=== PATIENT | male | born 1985 | race Caucasian/White ===

== ENCOUNTER 2016-08-17 15:18 | Inpatient (IN) | payer OTHER ==
[~2016-08-17] VITALS: Ht 165.1 cm; Wt 71.1 kg
[~2016-08-17 15:18] MED LIST: LAMI25TA PO; LEVO25TA5 PO; LEVO75TA4 PO; LEVOTHYROXINE PO; PALI1TAB2 PO; TRAZO50TA PO
[2016-08-17 17:21] LABS: MEAN CORPUSCULAR HEMOGLOBIN 31.5 pg (27.0-33.0); MEAN CORPUSCULAR HGB CONC 34.6 g/dl (32.0-36.5); RED CELL DISTRIBUTION WIDTH 11.8 % (11.5-14.5)
[2016-08-17 17:32] LABS: AMPHETAMINES LEVEL URINE NEGATIVE (NEGATIVE); BENZODIAZEPINES URINE NEGATIVE (NEGATIVE); COCAINE METABOLITE URINE NEGATIVE (NEGATIVE); CONTROL LINE INT CTR LINE PRESENT; METHADONE URINE NEGATIVE (NEGATIVE); OPIATES URINE NEGATIVE (NEGATIVE); TRICYCLIC ANTIDEPRESS URINE NEGATIVE (NEGATIVE)
[2016-08-17 17:44] LABS: ALBUMIN 4.9 GM/DL (3.2-5.2); ALBUMIN/GLOBULIN RATIO 1.81 (1.00-1.93); ALKALINE PHOSPHATASE 108 U/L (45-117); ALT/SGPT 25 U/L (12-78); ANION GAP 9 MEQ/L (8-16); AST/SGOT 13 U/L (15-37); BILIRUBIN,DIRECT 0.1 MG/DL (0.0-0.2); BILIRUBIN,TOTAL 0.5 MG/DL (0.2-1.0); BLOOD UREA NITROGEN 8 MG/DL (7-18); CALCIUM LEVEL 9.2 MG/DL (8.5-10.1); CARBON DIOXIDE LEVEL 28 MEQ/L (21-32); CHLORIDE LEVEL 103 MEQ/L (98-107); GLOMERULAR FILTRATION RATE > 60.0 (>60); GLUCOSE, FASTING 95 MG/DL (70-105); POTASSIUM SERUM 4.1 MEQ/L (3.5-5.1); SODIUM LEVEL 140 MEQ/L (136-145); TOTAL PROTEIN 7.6 GM/DL (6.4-8.2)
[2016-08-17] MEDS ORDERED: FLOM5CAP PO (23:12)
[2016-08-17] MEDS ORDERED: INVE6TAB2 PO (23:12)
[2016-08-17] MEDS ORDERED: LEVO100T5 PO (23:12)
[2016-08-17] MEDS ORDERED: TRAZ100T4 PO (23:12)
[2016-08-17] MEDS ORDERED: NICO14DI20 TD (23:12)
[2016-08-17] MEDS ORDERED: ZOLO100T PO (23:12)
[2016-08-17] MEDS ORDERED: AMBI10TA PO (23:12)
[2016-08-17] MEDS ORDERED: ATIV1TAB7 PO (23:12)
[2016-08-18] MEDS ORDERED: ACETAMINOPHEN TAB 650MG DOSE (2X325MG) PO PRN (00:45)
[2016-08-18] MEDS ORDERED: MAALOX 30 ML SUSP *UDC PO PRN (00:45)
[2016-08-18] MEDS ORDERED: MOM 30ML SUSPENSION UDC PO PRN (00:45)
--- NOTE | 2016-08-18 02:22 | EDDOCDS ---
Nurse's Notes [facility] Name: Marlon Schilling Age: 31 yrs Sex: Male : 1985 Arrival Date: 08/17/2016 Time: 15:18 Bed 19 Private MD: Brii NO Diagnosis: Suicidal ideations Presentation: 08/17 15:39 Presenting complaint:. Presenting complaint: patient told his licensed master social worker that he is kcs SI every day - recently discharged for [facility] facility. Also having short term memory loss. Mental Health Triage Level: Level 2:. Adult Sepsis Screening: The patient does not have new or worsening altered mentation. Patient's respiratory rate is less than 22. Systolic blood pressure is greater than 100. Patient has a qSOFA score of 0- Negative Sepsis Screen. Mental Health Triage Level: Level 2: The patient displays active suicidal ideations. The patient displays active homicidal ideations. Suicide/Homicide risk assessment- the patient denies having any suicidal and/or homicidal ideations and does not present with any other emotional, behavioral or mental health complaints. Status: The patient is an active duty protective service specialist. Transition of care: patient was not received from another setting of care. 15:39 Acuity: LOURDES Level 3 kcs 15:39 Method Of Arrival: Walkin/Carried/Asstd kcs 15:48 Presenting complaint: patient stated he was fine and did not need to be here. Escorts kcs say he was sent for psych eval. Triage Assessment: 15:43 General: Appears distressed, well developed, well nourished, well groomed, Behavior is kcs flat, uncooperative. Pain: Denies pain. HIV screening NA for this visit active duty . Neurological: Level of Consciousness is awake, alert. Respiratory: Airway is patent Respiratory effort is even, unlabored, Respiratory pattern is regular, symmetrical. Derm: Skin is intact, is healthy with good turgor, Skin is dry, Skin is normal. 15:49 General: patient answers no to all questions and just stares through you.. kcs 16:01 General: here with escorts. kcs Historical: - Allergies: Seroquel (Rash); - Home Meds: 1. Invega 3 mg Oral tr24 1 tab Daily( patient took self off this three weeks ago) 2. Lamictal Oral 50 mg twice daily ( patient took self off this three weeks ago) 3. levothyroxine 75 mcg Oral tab 1 tab once daily (Last dose: 08/17/2016 06:00) - PMHx: Bipolar disorder; Hypothyroidism; - PSHx: none; - Social history: Smoking status: unknown if patient ever smoked tobacco. No barriers to communication noted, The patient speaks fluent Dutch. - Family history: Not pertinent. - : The pt / caregiver states he / she is not on anticoagulants. Home medication list is obtained from [employer] import data. - Exposure Risk Screening:: None identified. Screenin:56 Screening information is obtained from the patient. Fall risk: No risks identified. ml6 Assistance ADL's: requires no assistance with activities of daily living. Abuse/DV Screen: The patient / caregiver reports he/she is: not in a situation that causes fear, pain or injury. Nutritional screening: No deficits noted. Advance Directives: Currently, there is no health care proxy. home support is adequate. Assessment: 16:12 General: since initial Triage patient has been sitting at the second triage desk kcs accompanied by his 2 escorts. 16:59 General: Appears in no apparent distress, Behavior is appropriate for age, cooperative. srm Neurological: Level of Consciousness is awake, alert, Oriented to person, place, time, Moves all extremities. Full function Gait is steady, Speech is normal, Facial symmetry appears normal. Respiratory: No deficits noted. GI: No deficits noted. 18:02 General: Appears in no apparent distress, comfortable, Behavior is appropriate for age, ml6 cooperative. Pain: Denies pain. Neurological: No deficits noted. Level of Consciousness is awake, alert, Oriented to person, place, time, Cardiology Nurse are Moves all extremities. Cardiovascular: No deficits noted. Capillary refill < 3 seconds is brisk in bilateral fingers toes Heart tones S1 S2 present. Respiratory: No deficits noted. Airway is patent Respiratory effort is even, unlabored. 19:24 General: Appears in no apparent distress, comfortable, Behavior is appropriate for age, af2 cooperative, flat, Assumed care of pt at this time, pt seated in upright position. Offers no complaints. escort at bedside. MOHAN staff observing pt at this time. Will continue to monitor. . Neurological: Level of Consciousness is awake, alert, Oriented to person, place, time. Respiratory: Airway is patent Respiratory effort is even, unlabored. 20:22 General: Appears in no apparent distress, comfortable, Behavior is appropriate for age, af2 cooperative, this investigative writer verified home medications with pt including scheduled times and last dosage time- pt confirms he only takes Synthroid at 0600, last dose this morning and states that he stopped taking his other medications on his own [address] Snell notified of this information. escort remains at bedside. MOHAN staff observing, will continue to monitor. . Neurological: Level of Consciousness is awake, alert. Respiratory: Airway is patent Respiratory effort is even, unlabored. Derm: Skin is normal. 20:51 General: Appears in no apparent distress, Behavior is cooperative, pt lying on af2 stretcher quietly in room 19. report given to Bruno Snider RN at this time. He has agreed to assume care of pt.. 21:08 General: Appears in no apparent distress, comfortable, Behavior is appropriate for age, jmb cooperative, flat, Patient laying on stretcher, appears comfortable. Patient commanding officer at bedside. NO voiced complaints at this time. . Pain: Denies pain. Neurological: Level of Consciousness is awake, alert, obeys commands, Oriented to person, place, time, Cardiology Nurse are equal bilaterally Moves all extremities. Full function Gait is steady, Speech is normal, Facial symmetry appears normal, Facial symmetry: tongue is midline. Cardiovascular: Capillary refill < 3 seconds Heart tones S1 S2 present Pulses are all present. Rhythm is regular. Respiratory: Airway is patent Respiratory effort is even, unlabored, Respiratory pattern is regular, symmetrical, Breath sounds are clear bilaterally. GI: Abdomen is non- distended Bowel sounds present X 4 quads. Abd is soft and non tender X 4 quads. Derm: Skin is pink, warm & dry. Musculoskeletal: Range of motion intact in all extremities. 21:41 General: Appears in no apparent distress, comfortable, Behavior is appropriate for age, jmb cooperative, Patient laying on stretcher with commanding officer at bedside. Patient denies discomfort at this time. . Neurological: Level of Consciousness is awake, alert, obeys commands. Respiratory: Airway is patent Respiratory effort is even, unlabored, Respiratory pattern is regular, symmetrical. 22:20 General: Appears in no apparent distress, comfortable, Behavior is appropriate for age, jmb cooperative, Patient laying on stretcher, appears comfortable. Commanding officer at bedside. NO voiced complaints at this time. . Neurological: Level of Consciousness is awake, alert, obeys commands, Oriented to person, place, time. Respiratory: Airway is patent Respiratory effort is even, unlabored, Respiratory pattern is regular, symmetrical. 22:50 General: Appears in no apparent distress, comfortable, Behavior is appropriate for age, jmb cooperative, Patient laying on stretcher, appears comfortable. Patient denies discomfort at this time. . Neurological: Level of Consciousness is awake, alert, obeys commands, Oriented to person, place, time. Respiratory: Airway is patent Respiratory effort is even, unlabored, Respiratory pattern is regular, symmetrical. 23:30 General: Appears in no apparent distress, comfortable, Behavior is appropriate for age, jmb cooperative. Neurological: Level of Consciousness is awake, alert, obeys commands, Oriented to person, place, time. Respiratory: Airway is patent Respiratory effort is even, unlabored, Respiratory pattern is regular, symmetrical. 08/18 00:04 General: Appears in no apparent distress, comfortable, Behavior is appropriate for age, jmb cooperative, Patient up to bathroom. NO voiced complaints at this time. . Neurological: Level of Consciousness is awake, alert, obeys commands, Oriented to person, place, time. Respiratory: Airway is patent Respiratory effort is even, unlabored, Respiratory pattern is regular, symmetrical. 01:38 General: Appears in no apparent distress, comfortable, Behavior is appropriate for age, jmb cooperative, Patient appears to be asleep, easy to arouse. Voices no complaints at this time. . Neurological: Level of Consciousness is awake, alert, obeys commands, Oriented to person, place, time. Respiratory: Airway is patent Respiratory effort is even, unlabored, Respiratory pattern is regular, symmetrical. 02:03 General: Appears in no apparent distress, comfortable, Behavior is appropriate for age, jmb cooperative. Pain: Denies pain. Neurological: Level of Consciousness is awake, alert, obeys commands, Oriented to person, place, time, Cardiology Nurse are equal bilaterally Speech is normal, Facial symmetry appears normal, Facial symmetry: tongue is midline. Cardiovascular: Capillary refill < 3 seconds Heart tones S1 S2 present Pulses are all present. Rhythm is regular. Respiratory: Airway is patent Respiratory effort is even, unlabored, Respiratory pattern is regular, symmetrical, Breath sounds are clear bilaterally. GI: Abdomen is non- distended Bowel sounds present X 4 quads. Abd is soft and non tender X 4 quads. Derm: Skin is pink, warm & dry. Musculoskeletal: Range of motion intact in all extremities. 02:21 General: Patient leaving ER to [facility]. ramesh Mental Health Eval: 08/17 21:03 Mental health consult is initiated at 20:00. Status: The patient is an active ac duty protective service specialist. [facility] Behavioral Health: The patient is not an established patient of [facility] Behavioral Health. Referral Information: Evaluation referral is generated by the patient's therapist Bryant Loaiza at [facility]. The patient was referred for evaluation because of apparent exacerbation of Bipolar D/O, including SI. Subjective: The patients chief complaint is [No answer], when asked the reason for his visit here today. Delusions are not elicited presently, nor are hallucinations. Patient's mood is depressed. Patient is a poor historian, who is very difficult to engage. Most of the hx is obtained from his EMR, clinic note from [facility] & his Doll Wig Hackler (Fernando). When attempting to engage patient, he generally stares straight ahead, appearing unable to think clearly or comprehend most questions. He initially denied seeing today, then later said that he had (after being corrected by his SL). He said that he has been depressed, although only admitted to this when prompted by this investigative writer repeating clinic notes. Patient was able to accurately recite the date & location, although little else. Per review of his EMR, he was admitted here in January for 3 weeks & D/C with a dx of Bipolar D/O. Per review of his clinic note from today, he was transferred to [facility] in May, where he had an extended stay after attempting suicide by cutting his wrist with a broken CD (while on their unit). In June he was sent to [facility], where he received 8 sessions of ECT. He returned on 07/29, appearing to be improved. He has since stopped his meds & his condition has decompensated. His Doll Wig Hackler reported that he has regular contact with the patient, "And today was by far the worst". SL reported that he began attempting to get patient out of bed to report to work at 10:45 am, although patient was not responding to requests & kept falling asleep. This continued until after 2:00 pm, when he was eventually taken to , where he revealed feeling suicidal for the last several days. At this point he appears unsafe & unreliable. 21:49 Narrative: This assessment & documentation was completed by Luigi Srinivasan & charted ac under Martin James. 21:56 Mental Health history: Bipolar Disorder, depression, paranoia, psychosis, sleep jl disturbance, suicide attempt by cutting Mental Health Admissions: [facility]: 01/2016, [facility]: 05/2016 & [facility]: 06/2016 Current Outpatient Mental Health Services: Psychiatrist / Agency: [facility]. Therapist / Agency: [facility]. Current living environment is The patient [facility]. Patient presents to Emergency Department with the following symptoms within the past 2 weeks: depressed mood, non-compliance, poor concentration, psychosis, sleep disturbance - excessive sleeping, suicidal ideation with no plan. Substance abuse: None known. Mental status exam: Patients appearance is appropriate, Patient's behavior is bizarre, inhibited, minimally responsive Speech is unspontaneous Affect is flat. Mood is depressed. Hallucinations are not evident. Appetite is unable to obtain Memory is poor. Patient's insight is poor. Judgement is poor. Remainder of MSE is deferred due to patient's condition. Disposition: Medically cleared for disposition by Lorenza Santos MD Psychiatric Consult is performed by phone with Dr Yara Wick. [facility] Admission Criteria: The patient is experiencing suicidal ideation. The patient displays symptoms of severe psychiatric disorder resulting in disordered behavior and significant interference with his / her ability to maintain self care. The patient requires continuous observation and/or control to protect self, others or property. The patient's care requires a multi-modal treatment plan under close supervision and coordination due to the complexity and severity of the patient's symptoms. Legal Status: Patient's legal status will be Emergency admission: 39. [place] because patient was registered less than 6 months ago. DSM-V Differential Diagnosis: Bipolar D/O, Unspecified. 22:04 Insurance Pre-Certification: Not Required. jl Psych: 17:00 Mental Health Triage Level: Level 2: The patient displays active suicidal ideations. srm 17:00 Objective: Patient is cooperative, Speech is normal. Affect is appropriate. Vital Signs: 15:21 BP 121 / 91; Pulse 79; Resp 16; Temp 97.8; Pulse Ox 98% ; Weight 72.57 kg; Height 5 ft. cmb 5 in. (165.10 cm); Pain 0/10; 21:08 BP 128 / 85; Pulse 60; Resp 18; Temp 98.5(TE); Pulse Ox 97% on R/A; Pain 0/10; jmb 08/18 02:06 BP 126 / 94; Pulse 60; Resp 18 S; Temp 97.3(O); Pulse Ox 98% on R/A; Pain 0/10; jp4 08/17 15:21 Body Mass Index 26.63 (72.57 kg, 165.10 cm) cmb Vitals: 08/17 15:21 Log In Time: August 17, 2016 at 15:18. b ED Course: 15:20 Patient visited by Tiff Lopez. cmb 15:20 [facility], [place] is Private Physician. cmb 15:20 Patient moved to Waiting cmb 15:21 RN notified that patient meets Red Flag criteria. cmb 15:35 Patient moved to Pre RCE gr2 15:43 Triage Initiated kcs 16:09 Patient moved to Psy Chair2 mb9 16:50 Patient moved to H2 srm 17:00 Patient visited by Ambar Perry RN. [facility] 17:00 Lorenza Santos MD is Attending Physician. ml 17:00 Patient visited by Lorenza Santos MD. ml 18:21 Patient visited by Yonatan Guevara, BOBBI. ml6 18:55 Patient visited by Yonatan Guevara RN. ml6 18:56 The patient / caregiver is instructed regarding the plan of care and ED course. ml6 18:56 No IV's were initiated during this patient's visit. No procedures done that require [facility] assistance. 18:58 Diet: Patient given regular meal. Tolerated well. rs6 18:58 Cardiac monitoring not applicable on this patient. Psych Safety Check: Location: [facility]. Visual Assessment: Cooperative. 19:08 Patient visited by Patricia Sheets PCA. rs6 19:26 Patient visited by Smitha Sullivan,RN. af2 19:31 Patient visited by Patricia Sheets PCA. rs6 19:31 Diet: Patient given water. Tolerated well. rs6 19:47 Patient visited by Patricia Sheets PCA. rs6 19:47 EKG done. (by ED staff). Reviewed by Lorenza Santos MD. rs6 20:21 Patient visited by Smitha Sullivan RN. af2 20:26 Patient visited by Smitha Sullivan RN. af2 20:34 Patient moved to Aug 20:42 Patient visited by Patricia Sheets PCA. rs6 20:52 Patient visited by Smitha Sullivan RN. af2 21:10 Patient visited by Guy Snider RN. jmb 21:42 Patient visited by Guy Snider RN. jmb 22:05 Other: [place] [facility] Note was scanned into [employer] and attached to record. jl 22:20 Patient visited by Guy Snider RN. jmb 22:27 E Legal paperwork was scanned into [employer] and attached to record. jl 22:31 Yara Wick is Hospitalizing Provider. ml 22:50 Patient visited by Guy Snider RN. jmb 08/18 00:04 Patient visited by Guy Snider RN. jmb 00:19 [facility] Payment Agreement was scanned into [employer] and attached to record. ks16 00:48 role handed off by Martin James PSA kb5 00:49 role handed off by Luigi Srinivaasn PSA kb5 01:17 Jessica Valverde,RN is Primary Nurse. cf2 01:17 Patient visited by Jessica Valverde,BOBBI. cf2 01:39 Patient visited by Guy Snider RN. jmb 02:05 Patient visited by Guy Snider RN. jmb 02:07 Patient visited by Jesse Call. jp4 Attachments: 22:27 E Legal paperwork jl Order Results: Lab Order: Acetaminophen Level; SPEC'M 08/17/16 17:07 Test: ACETAMINOPHEN LEVEL; Value: < 2.0; Range: 10.0-30.0; Abnormal: Below low normal; Units: UG/ML; Status: F Lab Order: Basic Metabolic Profile; SPEC'M 08/17/16 17:07 Test: GLUCOSE, FASTING; Value: 95; Range: 70-105; Units: MG/DL; Status: F Test: BLOOD UREA NITROGEN; Value: 8; Range: 7-18; Units: MG/DL; Status: F Test: CREATININE FOR GFR; Value: 1.00; Range: 0.70-1.30; Units: MG/DL; Status: F Test: GLOMERULAR FILTRATION RATE; Value: > 60.0; Range: >60; Status: F Test: SODIUM LEVEL; Value: 140; Range: 136-145; Units: MEQ/L; Status: F Test: POTASSIUM SERUM; Value: 4.1; Range: 3.5-5.1; Units: MEQ/L; Status: F Test: CHLORIDE LEVEL; Value: 103; Range: 98-107; Units: MEQ/L; Status: F Test: CARBON DIOXIDE LEVEL; Value: 28; Range: 21-32; Units: MEQ/L; Status: F Test: ANION GAP; Value: 9; Range: 8-16; Units: MEQ/L; Status: F Test: CALCIUM LEVEL; Value: 9.2; Range: 8.5-10.1; Units: MG/DL; Status: F Test Note: ; Units are mL/min/1.73 m2 Chronic Kidney Disease Staging per NKF: Stage I & II GFR >=60 Normal to Mildly Decreased Stage III GFR 30-59 Moderately Decreased Stage IV GFR 15-29 Severely Decreased Stage V GFR <15 Very Little GFR Left ESRD GFR <15 on WAREHOUSE DISTRIBUTION MANAGER Lab Order: Complete Blood Count; [facility] 08/17/16 17:07 Test: WHITE BLOOD COUNT; Value: 6.0; Range: 4.0-10.0; Units: K/mm3; Status: F Test: RED BLOOD COUNT; Value: 4.70; Range: 4.30-6.10; Units: M/mm3; Status: F Test: HEMOGLOBIN; Value: 14.8; Range: 14.0-18.0; Units: g/dl; Status: F Test: HEMATOCRIT; Value: 42.8; Range: 42.0-52.0; Units: %; Status: F Test: MEAN CORPUSCULAR VOLUME; Value: 91.0; Range: 80.0-96.0; Units: fl; Status: F Test: MEAN CORPUSCULAR HEMOGLOBIN; Value: 31.5; Range: 27.0-33.0; Units: pg; Status: F Test: MEAN CORPUSCULAR HGB CONC; Value: 34.6; Range: 32.0-36.5; Units: g/dl; Status: F Test: RED CELL DISTRIBUTION WIDTH; Value: 11.8; Range: 11.5-14.5; Units: %; Status: F Test: PLATELET COUNT, AUTOMATED; Value: 309; Range: 150-450; Units: k/mm3; Status: F Lab Order: Drug Eval Toxicology ED Only; SPEC'M 08/17/16 17:07 Test: AMPHETAMINES LEVEL URINE; Value: NEGATIVE; Range: NEGATIVE; Status: F Test: BARBITURATES URINE; Value: NEGATIVE; Range: NEGATIVE; Status: F Test: BENZODIAZEPINES URINE; Value: NEGATIVE; Range: NEGATIVE; Status: F Test: CANNABINOIDS URINE; Value: NEGATIVE; Range: NEGATIVE; Status: F Test: COCAINE METABOLITE URINE; Value: NEGATIVE; Range: NEGATIVE; Status: F Test: METHADONE URINE; Value: NEGATIVE; Range: NEGATIVE; Status: F Test: OPIATES URINE; Value: NEGATIVE; Range: NEGATIVE; Status: F Test: TRICYCLIC ANTIDEPRESS URINE; Value: NEGATIVE; Range: NEGATIVE; Status: F Test Note: ; ALL PRESUMPTIVE POSITIVE FINDINGS ARE UNCONFIRMED NORMAL VALUES THRESHOLD IN NG/ML AMPHETAMINES 1000 METHAMPHETAMINES 1000 BARBITURATES 300 BENZODIAZEPINES 300 CANNABINOIDS (THC) 50 COCAINE METABOLITE 300 METHADONE 300 OPIATES 300 PHENCYCLIDINE 25 TRICYCLIC ANTIDEPRESSANTS 1000 RESULTS ARE FOR MEDICAL PURPOSES ONLY. ALL URINE SPECIMENS WILL BE SAVED FOR 3 DAYS. IF CONFIRMATION OF A PRESUMPTIVE POSTIVE SCREEN RESULT IS DESIRED, CALL CHEMISTRY ([phone]) AND REQUEST URINE TO BE SENT TO REFERENCE LAB. FOR A LIST OF CLOSELY RELATED COMPOUNDS PLEASE CALL THE LAB. Lab Order: Ethyl Alcohol (ethanol); SPEC'M 08/17/16 17:07 Test: ETHYL ALCOHOL (ETHANOL); Value: < 0.003; Range: 0.000-0.010; Units: %; Status: F Lab Order: Liver Profile; SPEC'M 08/17/16 17:07 Test: AST/SGOT; Value: 13; Range: 15-37; Abnormal: Below low normal; Units: U/L; Status: F Test: ALT/SGPT; Value: 25; Range: 12-78; Units: U/L; Status: F Test: ALKALINE PHOSPHATASE; Value: 108; Range: 45-117; Units: U/L; Status: F Test: BILIRUBIN,TOTAL; Value: 0.5; Range: 0.2-1.0; Units: MG/DL; Status: F Test: BILIRUBIN,DIRECT; Value: 0.1; Range: 0.0-0.2; Units: MG/DL; Status: F Test: TOTAL PROTEIN; Value: 7.6; Range: 6.4-8.2; Units: GM/DL; Status: F Test: ALBUMIN; Value: 4.9; Range: 3.2-5.2; Units: GM/DL; Status: F Test: ALBUMIN/GLOBULIN RATIO; Value: 1.81; Range: 1.00-1.93; Status: F Lab Order: Salicylate Level; SPEC'M 08/17/16 17:07 Test: SALICYLATE LEVEL; Value: < 1.7; Range: 5.0-30.0; Abnormal: Below low normal; Units: MG/DL; Status: F Lab Order: Thyroid Stimulating Hormone; SPEC'M 08/17/16 17:07 Test: THYROID STIMULATING HORMONE; Value: 3.030; Range: 0.358-3.740; Units: uIU/ML; Status: F Outcome: 08/17 22:32 Decision to Hospitalize by Provider. 08/18 02:03 Discharge Assessment: Patient awake, alert and oriented x 3. No cognitive and/or jmb functional deficits noted. Patient verbalized understanding of disposition instructions. Patient awake and alert. obeys commands, Oriented to person, place and time. Patient verbalized understanding of disposition instructions. Patient has no functional deficits. patient administered narcotics - no. The following High Risk Discharge criteria are identified: None. Admitted to Psych accompanied by tech, via wheelchair, with chart. Condition: stable. No special radiology studies were completed. Property :Personal belongings accompany Pt. 02:21 Patient left the ED. jmb Signatures: Lorenza Santos MD MD ml Sleeman, Kacey, RN RN kcs Michelson, Staci, RN RN srm Newman, Jill New, RN RN jan Carter, Andy, PSA PSA Luigi Miles PSA PSA kristie Perezoft Humberto, DATA CONSULTANT DATA CONSULTANT kb5 Yonatan Guevara, RN RN ml6 Tiff Lopez cmb Joanna Velez gr2 Guy SniderRN RN jmb Jesse Call jp4 Jersey Kamara,RN RN mb9 Sheets, Patricia, DATA CONSULTANT DATA CONSULTANT rs6 Smitha Sullivan,RN RN af2 Batsheva Reyes, Reg Reg ks16 Jessica Valverde RN RN cf2 Corrections: (The following items were deleted from the chart) 08/17 15:45 15:39 Presenting complaint: patient told his licensed master social worker that is SI every day - kcs recently discharged for [facility] facility. Also having short term memory loss. kcs 15:48 15:39 Presenting complaint: patient told his licensed master social worker that is SI every day - kcs recently discharged for [facility] facility. Also having short term memory loss. kcs 20:10 15:43 Home Meds: levothyroxine 75 mcg Oral tab 1 tab once daily; kcs af2 22:04 21:03 Subjective: The patients chief complaint is [No answer], when asked the reason jl for his visit here today. Delusions are not elicited presently, nor are hallucinations. Patient's mood is depressed. Patient is a poor historian, who is very difficult to engage. Most of the hx is obtained from his EMR, clinic note from [facility] & his Doll Wig Hackler (Fernando). When attempting to engage patient, he generally stares straight ahead, appearing unable to think clearly or comprehend most questions. He initially denied seeing today, then later said that he had (after being corrected by his SL). He said that he has been depressed, although only admitted to this when prompted by this investigative writer repeating clinic notes. Patient was able to accurately recite the date & location, although little else. Per review of his EMR, he was admitted here in January for 3 weeks & D/C with a dx of Bipolar Type I. Per review of his clinic note from today, he was transferred to [facility] in May, where he had an extended stay after attempting suicide by cutting his wrist with a broken CD (while on their unit). In June he was sent to [facility], where he received 8 sessions of ECT. He returned on 07/29, appearing to be improved. He has since stopped his meds & his condition has decompensated. His Doll Wig Hackler reported that he has regular contact with the patient, "And today was by far the worst". SL reported that he began attempting to get patient out of bed to report to work at 10:45 am, although patient was not responding to requests & kept falling asleep. This continued until after 2:00 pm, when he was eventually taken to , where he revealed feeling suicidal for the last several days. At this point he appears unsafe & unreliable ac MTDD
--- NOTE | 2016-08-18 02:22 | EDDOCDS ---
Physician Documentation [facility] Name: Marlon Schilling Age: 31 yrs Sex: Male : 1985 Arrival Date: 08/17/2016 Time: 15:18 Bed 19 Private [facility] Disposition: 08/17/16 22:32 Hospitalization ordered by Yara Wick for Inpatient Admission. Preliminary diagnosis is Suicidal ideations. - Bed requested for Admit. - Status is Inpatient Admission. jmb - Condition is Stable. - Problem is new. - Symptoms are unchanged. Historical: - Allergies: Seroquel (Rash); - Home Meds: 1. Invega 3 mg Oral tr24 1 tab Daily( patient took self off this three weeks ago) 2. Lamictal Oral 50 mg twice daily ( patient took self off this three weeks ago) 3. levothyroxine 75 mcg Oral tab 1 tab once daily (Last dose: 08/17/2016 06:00) - PMHx: Bipolar disorder; Hypothyroidism; - PSHx: none; - Social history: Smoking status: unknown if patient ever smoked tobacco. No barriers to communication noted, The patient speaks fluent Cambodian. - Family history: Not pertinent. - : The pt / caregiver states he / she is not on anticoagulants. Home medication list is obtained from [employer] import data. - Exposure Risk Screening:: None identified. Vital Signs: 08/17 15:21 BP 121 / 91; Pulse 79; Resp 16; Temp 97.8; Pulse Ox 98% ; Weight 72.57 kg / 159.99 lbs; cmb Height 5 ft. 5 in. (165.10 cm); Pain 0/10; 21:08 BP 128 / 85; Pulse 60; Resp 18; Temp 98.5(TE); Pulse Ox 97% on R/A; Pain 0/10; jmb 08/18 02:06 BP 126 / 94; Pulse 60; Resp 18 S; Temp 97.3(O); Pulse Ox 98% on R/A; Pain 0/10; jp4 08/17 15:21 Body Mass Index 26.63 (72.57 kg, 165.10 cm) cmb MDM: 08/17 16:26 Consult PFS/PSA/Sewing Machine Assembler ordered. 16:26 Consult PFS/PSA/Sewing Machine Assembler: Patient's case requires discussion with on-call ml Psychiatrist ordered. 16:26 PSA/PFS to call Nursing Heel Lining Paster, to [place] if patient ml involuntarily admitted or transferred for SI or HI ordered. 16:26 Confirm accurate psychiatric medication list and times of last dosage ordered. ml 16:26 Detain Pt Until Medically/PFS Cleared ordered. ml 16:27 Acetaminophen Level Ordered. EDMS 16:27 Basic Metabolic Profile Ordered. EDMS 16:27 Complete Blood Count Ordered. EDMS 16:27 Drug Eval Toxicology ED Only Ordered. EDMS 16:27 Ethyl Alcohol (ethanol) Ordered. EDMS 16:27 Liver Profile Ordered. EDMS 16:27 Salicylate Level Ordered. EDMS 16:27 Thyroid Stimulating Hormone Ordered. EDMS 16:28 Lamotrigine,Lamictal Ordered. EDMS 16:53 REGULAR DIET PED PLASTIC LAM+DIET ordered. EDMS 16:53 REGULAR DIET PLASTIC LAM+DIET ordered. EDMS 16:53 REGULAR DIET PLASTIC LAM+DIET ordered. EDMS 19:17 ECG WITH READING ER PHYS+CARDIAG ordered. EDMS 19:27 Acetaminophen Level Reviewed. ml 19:27 Liver Profile Reviewed. ml 19:27 Salicylate Level Reviewed. ml 19:27 Basic Metabolic Profile Reviewed. ml 19:27 Complete Blood Count Reviewed. ml 19:27 Drug Eval Toxicology ED Only Reviewed. ml 19:27 Ethyl Alcohol (ethanol) Reviewed. ml 19:27 Thyroid Stimulating Hormone Reviewed. ml 19:28 Misc. Nursing Order ordered. ml 19:31 Financial registration complete. gjb 20:57 Admit to [facility]: ordered. EDMS 21:02 Consult PFS/PSA/Sewing Machine Assembler: Patient's case requires discussion with on-call ac Psychiatrist complete. 21:02 Consult PFS/PSA/Sewing Machine Assembler complete. ac 21:02 PSA/PFS to call Nursing Heel Lining Paster, to [place] if patient ac involuntarily admitted or transferred for SI or HI complete. 22:05 Other: [facility] Note was scanned into [employer] and attached to record. jl 22:27 [facility] Legal paperwork was scanned into [employer] and attached to record. jl 08/18 00:19 [facility] [place] was [place] into [employer] and attached to record. [id number] 00:33 REGULAR DIET ordered. EDMS Signatures: Dispatcher [employer] EDMS Lorenza Santos MD MD ml Sleeman, Kacey RN RN kcs Martin James PSA PSA ac LaFontaine, Jon, Guy Holden RN RN jmb F[place]on, Amber, RN RN af2 Chayo Echevarria Kimberly, Reg Reg [email or web address] The chart was reviewed and I authenticate all verbal orders and agree with the evaluation and treatment provided.Corrections: (The following items were deleted from the chart) 08/17 20:10 15:43 Home Meds: levothyroxine 75 mcg Oral tab 1 tab once daily; della af2 Attachments: 08/18 00:19 [facility] [place] [email or web address] MTDD
[2016-08-18] MEDS ORDERED: HALOPERIDOL 2 MG TAB PO STA (02:36)
[2016-08-18] MEDS ORDERED: LORazepam 2 MG TAB PO STA (02:36)
[2016-08-18 06:35] VITALS: BP 152/86
[2016-08-18] MEDS: LEVOTHYROXINE 0.075 MG TAB (75 MCG) PO SCH (06:38)
--- NOTE | 2016-08-18 10:14 | HPEPDOC ---
Medical History and Physical Date of Admission Aug 18, 2016 at 02:30 History and Physical PCP: [facility] ATTENDING: Dr. Yong Gomes HPI: 31[facility], being medically examined today. No acute medical complaints today. Denies any fevers, chills, weakness, fatigue, [place], CP, SOB, cough, palpitations, abdominal pain, N/V/D or changes in bowel or bladder habits. PMHx: Hypothyroidism Bipolar disorder H/O SI urinary hesitancy- controlled on Flomax PSHX: [place] teeth extraction SOCHX: Resides in: [place] Marital Status: Kids: None Employment: Active duty Tobacco use: Uses e-cigarette ETOH: Denies Illicit Drugs: Took 5 hydrocodone from a roommate one week ago IV Drug Use: Denies Tattoos done unprofessionally: Denies FAMHX: Mother: Alive, well Father: Alive, well Siblings: Alive, well Children: None Unexpected deaths due to medical reasons: None. ROS: As noted in HPI, otherwise 11pt ROS of systems reviewed and unremarkable PE: GEN: 31yoM, appears stated age. Well-nourished, well developed. No acute distress. Alert and oriented x 3. Affect is flat. HEENT: Normocephalic, atraumatic. Pupils are equal, round, and reactive to light. Extraocular movements are intact. No nystagmus appreciated. Sclera are nonicteric. Conjunctiva without injection. Nose midline. Nasal turbinates without bogginess. EACs both patent BL. TMs both visualized and sahni with good cone of light, no bulging or erythema. No facial asymmetry. Moist mucous membranes. Dentition fair. Pharynx pink and moist, no cobblestoning. Neck supple , trachea midline. No lymphadenopathy or thyromegaly appreciated. CHEST: Regular rate and rhythm, +S1, +S2 LUNGS: Clear to auscultation bilaterally. No wheezes, rales, or rhonchi. Breathing appears symmetric and easy. Patient is speaking in full sentences. No accessory muscle use. ABD: Round, soft, non-tender, non-distended. +Bowel sounds throughout. No rebound or guarding. No costovertebral angle tenderness. EXT: Pulses 2+ bilaterally dorsalis pedis and radial. No lower extremity edema appreciated. SKIN: [place], dry, warm. Capillary refill <2sec. No rashes. NEURO: Alert and oriented x 3. Cranial nerves III-XII are intact. No focal deficits appreciated. EK05/16/16 SR with SA. 85bpm. A&P: 31yoM [facility] 1. Psych. Plan per Psychiatry. EKG on file. 2. Nicotine dependence. Patch available. 3. Hypothyroidism. Continue supplement- confirm accurate dose with pharmacy. TSH within normal limits. 4. Follow up with PCP on discharge. [facility]. 5. urinary hesitancy. Continue Flomax. 6. Accompanied throughout exam by staff member, product safety associate Ed. Vital Signs Vital Signs Label Value Date Time Patient Temperature 96.9 degrees F 08/18/16 0635 Temperature Source Tympanic 08/18/16 0635 Pulse 84 08/18/16 0635 Respiratory Rate 18 bpm 08/18/16 0635 Blood Pressure Assessment 152/86 (108) 08/18/16 0635 Laboratory Data Labs 24H Laboratory Tests 2 08/17/16 17:07: Acetaminophen Level < 2.0L, Aspartate Amino Transf (AST/SGOT) 13L, Alanine Aminotransferase (ALT/SGPT) 25, Alkaline Phosphatase 108, Total Bilirubin 0.5, Direct Bilirubin 0.1, Albumin 4.9, Albumin/Globulin Ratio 1.81, Anion Gap 9, Calcium Level 9.2, Ethyl Alcohol Level < 0.003, Glomerular Filtration Rate > 60.0, Salicylates Level < 1.7L, Thyroid Stimulating Hormone (TSH) 3.030, Total Protein 7.6, Urine Amphetamine Level NEGATIVE, Urine Benzodiazepines Screen NEGATIVE, Urine Cannabinoids NEGATIVE, Urine Cocaine Metabolite NEGATIVE, Urine Opiates Screen NEGATIVE, Urine Barbiturates, Qualitative NEGATIVE, Urine Methadone Screen NEGATIVE, Urine Tricyclic Antidepressants NEGATIVE CBC/BMP Laboratory Tests 08/17/16 17:07 Red Blood Count 4.70, Mean Corpuscular Volume 91.0, Mean Corpuscular Hemoglobin 31.5, Mean Corpuscular Hemoglobin Concent 34.6, Red Cell Distribution Width 11.8 Home Medications Scheduled Levothyroxine Sodium (Synthroid) 100 Mcg Tab 100 MCG PO DAILY Nicotine (Nicotine 14MG Patch) 1 Patch Tdsy 1 PATCH TD DAILY Paliperidone (Invega) 6 Mg Tab 6 MG PO DAILY Sertraline Hcl (Zoloft) 100 Mg Tab 100 MG PO DAILY Tamsulosin Hydrochloride (Flomax) 0.4 Mg Cap 0.4 MG PO DAILY Scheduled PRN Lorazepam (Ativan) 1 Mg Tab 1 MG PO PRN PRN PRN ANXIETY Trazodone HCl (Trazodone HCl) 100 Mg Tab 100 MG PO PRN PRN PRN DEPRESSION Zolpidem Tartrate (Ambien) 10 Mg Tab 10 MG PO PRN PRN PRN SLEEP Allergies Coded Allergies: Quetiapine (Verified Adverse Reaction, Mild, rash, 01/16/16) Micki Braun Aug 18, 2016 10:14
[2016-08-18 10:36] VITALS: BP 152/86
[2016-08-18] MEDS: NICOTINE 14 MG/24 HR TRANSDERMAL TD SCH (11:56)
[2016-08-18] MEDS: TAMSULOSIN 0.4 MG CAP PO SCH (11:56)
[2016-08-18 18:00] VITALS: BP 116/72
--- NOTE | 2016-08-18 19:49 | ECGEPIP ---
Stationary ECG Study [facility] - ED Test Date: 2016-08-17 Pat Name: BUSTER FERNANDEZ Department: Room: [place] [address] Gender: M Fish Receiver: joel : 1985 Requested By: Lorenza Santos Order Number: [id number] Reading MD: Tammie Tiwari Measurements Intervals [place] Rate: 59 P: 7 AR: 140 QRS: 38 QRSD: 108 T: 28 QT: 406 QTc: 403 Interpretive Statements SINUS BRADYCARDIA WITH SINUS ARRHYTHMIA DECREASED RATE 05/16/16 Electronically Signed On 08-18-2016 19:49:42 EST by Tammie Tiwari
[2016-08-18] MEDS: traZODone 50 MG TAB PO PRN (20:49)
--- NOTE | 2016-08-19 02:41 | MHHPE ---
DATE OF ADMISSION: 08/18/2016 CHIEF COMPLAINT: I was a little bit depressed. 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 Reportedly, he informed his therapist that he was not doing well and was expressing suicidal thoughts. In the emergency department, he was noted to appear confused and seemed to have difficulty with remembering things. He reportedly did not respond to most questions during ED interview. In current interview on the unit, he relates that he was 'a little depressed" and told his therapist about this, as well as reporting thoughts about suicide. He further reports that he has mostly been diagnosed with diagnosed with bipolar disorder, with his typical symptoms including depressed mood, racing thoughts and disorganized thinking. He says that he currently is prescribed Invega 6 mg orally daily, Zoloft 100 mg daily, and trazodone 200 mg at bedtime, but that he stopped taking the medications in past few weeks. He reports depressed and experiencing severe insomnia. Of note, he is noted during the interview to be fidgety, maintaining a blank stare, repeatedly requesting termination of interview, and appearing uncomfortable. PAST PSYCHIATRIC HISTORY: The patient provides a vague account of past psychiatric hospitalizations, including one in 2009 at [facility] in [place]. He is unable to recall details of the said past admission or events that led to the admission. A review of his records reveals the following: On 05/16/2016, he was seen at [facility] ([facility] Emergency Department due to suicidal ideation. He was transferred directly to [facility] and [facility], possibly due to unavailability of beds, Reportedly while at [facility], he attempted suicide by deeply slashing his wrist with a sharp object. He subsequently was transferred o [facility] ([facility] - a private facility for group home care). At some point, the patient was admitted to [facility] where he received ECT. History of multiple psychiatric hospitalizations are reported, mostly in context of poor compliance with his medications. On 01/16/2016, he was admitted to [facility] for depression and suicidal ideation and was discharged on 02/05/2016. His medications at the time of that discharge were Invega 3 mg by mouth at bedtime, Lamictal 25 mg by mouth at bedtime, trazodone 50 mg at bedtime as needed for insomnia. His discharge diagnosis at the time was bipolar disorder, unspecified, to rule out paranoid personality disorder. SUBSTANCE ABUSE HISTORY: He reports that he uses electronic cigarettes, has a nicotine patch. He used to drink, but stopped drinking. He reports previous use of narcotic agents, including Percocet and benzodiazepine, but has not used any of these in past 7 years. He denies current use of illegal drugs and alcohol. MEDICAL HISTORY: He is diagnosed with hypothyroidism for which he is treated with Synthroid. It is reported, however, that he is poorly compliant with the treatment. He denies any form of allergy. PERSONAL HISTORY: Says that he was born in [place], parents . He has two brothers. No history of abuse. Has a bachelor's degree in marketing. He is single, never . No children. FAMILY HISTORY: No pertinent reports. REVIEW OF SYSTEMS: No other reports other than hypothyroidism. VITAL SIGNS: Blood pressure 152/86, pulse 84, respirations 18, temperature 96.9. His admission medications include: - atomoxetine 80 mg daily - escitalopram 5 mg daily - also is on topiramate 25 mg daily - divalproex sodium 500 mg at bedtime - olanzapine 20 mg orally twice daily - in addition, he is on pregabalin, Lyrica; naproxen for pain management - Synthroid. MENTAL STATUS EXAMINATION: The patient is of short height and average build. He is fairly groomed and is dressed in [facility]. No abnormal movements are noted. He is calm, but superficially cooperative. He relates in a rather odd manner, appearing to be responding to internal stimuli and notably guarded. His speech is fluent, although lacks spontaneity. Thought process is coherent. I am unable to realistically determine thought contents, including delusions, due to the patient refusing to participate further in the interview. He appears occasionally to be responding to internal stimuli, although refuses to state if he was experiencing any form of hallucination. He is uncooperative with the rest of the interview, including assessment of his cognitive domain, insight and judgment, although there is no doubt that he demonstrates gross impairment in theses areas of functioning. He initially denies suicidal, homicidal thoughts, plan or intent; however, when deeply questioned about such he is ambivalent in his response. DIAGNOSIS: Bipolar Disorder, Current Episode Depressed, with Psychotic Features. Consider Unspecified Schizophrenia Spectrum and Other Psychotic Disorder. Hypothyroidism. PROBLEM LIST: 1. Depression. 2. Risk for suicide. 3. Altered thoughts. PLAN: Patient will be admitted with provision of safe therapeutic setting. He will be reinstated on his previous medications Invega, Lamictal as he had responded well and was stable on the treatment during his previous admission at [facility] ([facility]). He will be assessed and monitored ongoing for Suicide risk. group, individual, and activity therapies will be provided to complement medication management. Medical litharge supervisor to follow up with management of hypothyroidism Ongoing assessment and supportive therapy. Estimated length of stay: 5-7 days. MTDD
[2016-08-19] MEDS: LEVOTHYROXINE 0.075 MG TAB (75 MCG) PO SCH (06:09)
[2016-08-19 06:33] VITALS: BP 114/72
[2016-08-19] MEDS: TAMSULOSIN 0.4 MG CAP PO SCH ×2 (09:00→12:00)
[2016-08-19] MEDS: NICOTINE 14 MG/24 HR TRANSDERMAL TD SCH ×2 (09:00→12:00)
[2016-08-19 18:00] VITALS: BP 117/81
--- NOTE | 2016-08-19 18:58 | IPN ---
DATE: 08/19/2016 TREATMENT: The patient is seen on his second day of inpatient hospital admission and treatment reviewed. He is a 31-year-old who was admitted with an admitting diagnosis of bipolar disorder with psychotic features, rule out unspecified schizophrenia. He has been noted to be isolative, mostly in his room and refusing to interact with others. He has reportedly not been participating in any form of psychotherapeutic activity, including groups and individual. In the interview to assess his progress, he refuses to speak. OFF NOTE: Patient's admission medications were inadvertently entered as lamotrigine, citalopram, Topamax, Depakote, olanzapine. However, these medications actually were not part of the his admission medications. OBSERVATION: VITAL SIGNS: 114/72 blood pressure, pulse is 81, respirations 16, temperature 97.6. He was noted mostly in bed, not interacting. Appears to exhibit notable psychomotor retardation. Mood is depressed. Affect constricted. He appears to be internally preoccupied. He denies active suicidal thoughts, plan, or intents. ASSESSMENT: The patient continues to experience notable mood and possible psychotic symptoms. His medications are yet to be restarted. PLAN: He will be restarted on Invega 6 mg tablet orally daily, paroxetine 20 mg orally at bedtime will be started for treatment of depression. Medications are discussed with the patient and he offers no response. Risks and benefits are discussed. Plan also will include continuation of individual, group and activity therapies. The patient will be encouraged to actively participate in treatment. He will be monitored for risk of self harm. Ongoing assessment, supportive therapy. [facility]
[2016-08-19] MEDS: PARoxetine 20 MG TAB PO SCH (20:46)
[2016-08-19] MEDS: traZODone 50 MG TAB PO PRN (20:47)
--- NOTE | 2016-08-20 03:22 | EDDOCDS ---
Physician Documentation [facility] Name: Marlon Schilling Age: 31 yrs Sex: Male : 1985 Arrival Date: 08/17/2016 Time: 15:18 Bed 19 Private [facility] Disposition: 08/17/16 22:32 Hospitalization ordered by Yara Wick for Inpatient Admission. Preliminary diagnosis is Suicidal ideations. - Bed requested for Admit. - Status is Inpatient Admission. jmb - Condition is Stable. - Problem is new. - Symptoms are unchanged. Historical: - Allergies: Seroquel (Rash); - Home Meds: 1. Invega 3 mg Oral tr24 1 tab Daily( patient took self off this three weeks ago) 2. Lamictal Oral 50 mg twice daily ( patient took self off this three weeks ago) 3. levothyroxine 75 mcg Oral tab 1 tab once daily (Last dose: 08/17/2016 06:00) - PMHx: Bipolar disorder; Hypothyroidism; - PSHx: none; - Social history: Smoking status: unknown if patient ever smoked tobacco. No barriers to communication noted, The patient speaks fluent Taiwanese. - Family history: Not pertinent. - : The pt / caregiver states he / she is not on anticoagulants. Home medication list is obtained from [employer] import data. - Exposure Risk Screening:: None identified. Vital Signs: 08/17 15:21 BP 121 / 91; Pulse 79; Resp 16; Temp 97.8; Pulse Ox 98% ; Weight 72.57 kg / 159.99 lbs; cmb Height 5 ft. 5 in. (165.10 cm); Pain 0/10; 21:08 BP 128 / 85; Pulse 60; Resp 18; Temp 98.5(TE); Pulse Ox 97% on R/A; Pain 0/10; jmb 08/18 02:06 BP 126 / 94; Pulse 60; Resp 18 S; Temp 97.3(O); Pulse Ox 98% on R/A; Pain 0/10; jp4 08/17 15:21 Body Mass Index 26.63 (72.57 kg, 165.10 cm) cmb MDM: 08/17 16:26 Consult PFS/PSA/Histology Specialist ordered. 16:26 Consult PFS/PSA/Histology Specialist: Patient's case requires discussion with on-call ml Psychiatrist ordered. 16:26 PSA/PFS to call Nursing Hide Splitter, to enter [place] data [place] if patient ml involuntarily admitted or transferred for SI or HI ordered. 16:26 Confirm accurate psychiatric medication list and times of last dosage ordered. ml 16:26 Detain Pt Until Medically/PFS Cleared ordered. ml 16:27 Acetaminophen Level Ordered. EDMS 16:27 Basic Metabolic Profile Ordered. EDMS 16:27 Complete Blood Count Ordered. EDMS 16:27 Drug Eval Toxicology ED Only Ordered. EDMS 16:27 Ethyl Alcohol (ethanol) Ordered. EDMS 16:27 Liver Profile Ordered. EDMS 16:27 Salicylate Level Ordered. EDMS 16:27 Thyroid Stimulating Hormone Ordered. EDMS 16:28 Lamotrigine,Lamictal Ordered. EDMS 16:53 REGULAR DIET PED PLASTIC LAM+DIET ordered. EDMS 16:53 REGULAR DIET PLASTIC LAM+DIET ordered. EDMS 16:53 REGULAR DIET PLASTIC LAM+DIET ordered. EDMS 19:17 ECG WITH READING ER PHYS+CARDIAG ordered. EDMS 19:27 Acetaminophen Level Reviewed. ml 19:27 Liver Profile Reviewed. ml 19:27 Salicylate Level Reviewed. ml 19:27 Basic Metabolic Profile Reviewed. ml 19:27 Complete Blood Count Reviewed. ml 19:27 Drug Eval Toxicology ED Only Reviewed. ml 19:27 Ethyl Alcohol (ethanol) Reviewed. ml 19:27 Thyroid Stimulating Hormone Reviewed. ml 19:28 Misc. Nursing Order ordered. ml 19:31 Financial registration complete. gjb 20:57 Admit to [facility]: ordered. EDMS 21:02 Consult PFS/PSA/Histology Specialist: Patient's case requires discussion with on-call ac Psychiatrist complete. 21:02 Consult PFS/PSA/Histology Specialist complete. ac 21:02 PSA/PFS to call Nursing Hide Splitter, to enter [place] data [place] if patient ac involuntarily admitted or transferred for SI or HI complete. 22:05 Other: [facility] Note was scanned into [employer] and attached to record. jl 22:27 [facility] Legal paperwork was scanned into [employer] and attached to record. jl 08/18 00:19 [facility] [place] was scanned into [employer] and attached to record. [id number] 00:33 REGULAR DIET ordered. EDMS 10:16 T-Sheet-- Draft Copy was scanned into [employer] and attached to record. gb 10:16 ECG/EKG was scanned into [employer] and attached to record. gb 15:16 T-Sheet-- Draft Copy was scanned into [employer] and attached to record. gb Signatures: Dispatcher [employer] EDSC Lorenza Santos MD MD ml Sleeman, Kacey, RN RN Martin Medina, JONELLE PSA Luigi Miles, PSA PSA Christy Leonard, Reg Reg gb Guy SniderRN RN Smitha JonesRN BOBBI af2 Chayo Echevarria Kimberly, Reg Reg ks16 The chart was reviewed and I authenticate all verbal orders and agree with the evaluation and treatment provided.Corrections: (The following items were deleted from the chart) 08/17 20:10 15:43 Home Meds: levothyroxine 75 mcg Oral tab 1 tab once daily; della af2 Attachments: 08/18 00:19 [facility] [place] Agreement [email or web address] 10:16 ECG/EKG gb 15:16 T-Sheet-- Draft Copy gb Chart Complete MTDD
--- NOTE | 2016-08-20 03:22 | EDDOCDS ---
Physician Documentation [facility] Name: Marlon Schilling Age: 31 yrs Sex: Male : 1985 Arrival Date: 08/17/2016 Time: 15:18 Bed 19 [facility]: 08/17/16 22:32 Hospitalization ordered by Yara Wick for Inpatient Admission. Preliminary diagnosis is Suicidal ideations. - Bed requested for Admit. - Status is Inpatient Admission. jmb - Condition is Stable. - Problem is new. - Symptoms are unchanged. Historical: - Allergies: Seroquel (Rash); - Home Meds: 1. Invega 3 mg Oral tr24 1 tab Daily( patient took self off this three weeks ago) 2. Lamictal Oral 50 mg twice daily ( patient took self off this three weeks ago) 3. levothyroxine 75 mcg Oral tab 1 tab once daily (Last dose: 08/17/2016 06:00) - PMHx: Bipolar disorder; Hypothyroidism; - PSHx: none; - Social history: Smoking status: unknown if patient ever smoked tobacco. No barriers to communication noted, The patient speaks fluent [place]. - Family history: Not pertinent. - : The pt / caregiver states he / she is not on anticoagulants. Home medication list is obtained from [employer] data. - Exposure Risk Screening:: None identified. Vital Signs: 08/17 15:21 BP 121 / 91; Pulse 79; Resp 16; Temp 97.8; Pulse Ox 98% ; Weight 72.57 kg / 159.99 lbs; cmb Height 5 ft. 5 in. (165.10 cm); Pain 0/10; 21:08 BP 128 / 85; Pulse 60; Resp 18; Temp 98.5(TE); Pulse Ox 97% on R/A; Pain 0/10; jmb 08/18 02:06 BP 126 / 94; Pulse 60; Resp 18 S; Temp 97.3(O); Pulse Ox 98% on R/A; Pain 0/10; jp4 08/17 15:21 Body Mass Index 26.63 (72.57 kg, 165.10 cm) cmb MDM: 08/17 16:26 Consult PFS/PSA/Primary Substance Abuse Counselor ordered. 16:26 Consult PFS/PSA/Primary Substance Abuse Counselor: Patient's case requires discussion with on-call ml Psychiatrist ordered. 16:26 PSA/PFS to call Nursing Transfer Iron Operator, to enter patient data on [place] Safe Act if patient ml involuntarily admitted or transferred for SI or HI ordered. 16:26 Confirm accurate psychiatric medication list and times of last dosage ordered. ml 16:26 Detain Pt Until Medically/PFS Cleared ordered. ml 16:27 Acetaminophen Level Ordered. EDMS 16:27 Basic Metabolic Profile Ordered. EDMS 16:27 Complete Blood Count Ordered. EDMS 16:27 Drug Eval Toxicology ED Only Ordered. EDMS 16:27 Ethyl Alcohol (ethanol) Ordered. EDMS 16:27 Liver Profile Ordered. EDMS 16:27 Salicylate Level Ordered. EDMS 16:27 Thyroid Stimulating Hormone Ordered. EDMS 16:28 Lamotrigine,Lamictal Ordered. EDMS 16:53 REGULAR DIET PED PLASTIC LAM+DIET ordered. EDMS 16:53 REGULAR DIET PLASTIC LAM+DIET ordered. EDMS 16:53 REGULAR DIET PLASTIC LAM+DIET ordered. EDMS 19:17 ECG WITH READING ER PHYS+CARDIAG ordered. EDMS 19:27 Acetaminophen Level Reviewed. ml 19:27 Liver Profile Reviewed. ml 19:27 Salicylate Level Reviewed. ml 19:27 Basic Metabolic Profile Reviewed. ml 19:27 Complete Blood Count Reviewed. ml 19:27 Drug Eval Toxicology ED Only Reviewed. ml 19:27 Ethyl Alcohol (ethanol) Reviewed. ml 19:27 Thyroid Stimulating Hormone Reviewed. ml 19:28 Misc. Nursing Order ordered. ml 19:31 Financial registration complete. gjb 20:57 Admit to [facility]: ordered. EDMS 21:02 Consult PFS/PSA/Primary Substance Abuse Counselor: Patient's case requires discussion with on-call ac Psychiatrist complete. 21:02 Consult PFS/PSA/Primary Substance Abuse Counselor complete. ac 21:02 PSA/PFS to call Nursing Transfer Iron Operator, to [place] patient data [place] Safe [place] if patient ac involuntarily admitted or transferred for SI or HI complete. 22:05 Other: [facility] Note was scanned into [employer] and attached to record. jl 22:27 [facility] Legal paperwork was scanned into [employer] and attached to record. jl 08/18 00:19 [facility] Payment Agreement was scanned into [employer] and attached to record. [id number] 00:33 REGULAR DIET ordered. EDMS 10:16 T-Sheet-- Draft Copy was scanned into [employer] and attached to record. gb 10:16 ECG/EKG was scanned into [employer] and attached to record. gb 15:16 T-Sheet-- Draft Copy was scanned into [employer] and attached to record. gb Signatures: Dispatcher [employer] EDMO Lorenza Santos MD MD ml Sleeman, Kacey, RN RN Martin Medina, JONELLE PSA Luigi Miles, PSA PSA Christy Leonard, Reg Reg gb Guy SniderRN RN Smitha JonesRN BOBBI af2 Chayo Echevarria Kimberly, Reg Reg [id number] The chart was reviewed and I authenticate all verbal orders and agree with the evaluation and treatment provided.Corrections: (The following items were deleted from the chart) 08/17 20:10 15:43 Home Meds: levothyroxine 75 mcg Oral tab 1 tab once daily; della af2 Attachments: 08/18 00:19 [facility] Payment Agreement [email or web address] 10:16 ECG/EKG gb 15:16 T-Sheet-- Draft Copy gb Chart Complete MTDD
--- NOTE | 2016-08-20 03:24 | EDDOCDS ---
Nurse's Notes [facility] Name: Marlon Schilling Age: 31 yrs Sex: Male : 1985 Arrival Date: 08/17/2016 Time: 15:18 Bed 19 Private MD: Brii NO Diagnosis: Suicidal ideations Presentation: 08/17 15:39 Presenting complaint:. Presenting complaint: patient told his social worker health services that he is kcs SI every day - recently discharged for [facility] facility. Also having short term memory loss. Mental Health Triage Level: Level 2:. Adult Sepsis Screening: The patient does not have new or worsening altered mentation. Patient's respiratory rate is less than 22. Systolic blood pressure is greater than 100. Patient has a qSOFA score of 0- Negative Sepsis Screen. Mental Health Triage Level: Level 2: The patient displays active suicidal ideations. The patient displays active homicidal ideations. Suicide/Homicide risk assessment- the patient denies having any suicidal and/or homicidal ideations and does not present with any other emotional, behavioral or mental health complaints. Status: The patient is an active duty mechanical service technician. Transition of care: patient was not received from another setting of care. 15:39 Acuity: LOURDES Level 3 kcs 15:39 Method Of Arrival: Walkin/Carried/Asstd kcs 15:48 Presenting complaint: patient stated he was fine and did not need to be here. Escorts kcs say he was sent for psych eval. Triage Assessment: 15:43 General: Appears distressed, well developed, well nourished, well groomed, Behavior is kcs flat, uncooperative. Pain: Denies pain. HIV screening NA for this visit active duty . Neurological: Level of Consciousness is awake, alert. Respiratory: Airway is patent Respiratory effort is even, unlabored, Respiratory pattern is regular, symmetrical. Derm: Skin is intact, is healthy with good turgor, Skin is dry, Skin is normal. 15:49 General: patient answers no to all questions and just stares through you.. kcs 16:01 General: here with escorts. kcs Historical: - Allergies: Seroquel (Rash); - Home Meds: 1. Invega 3 mg Oral tr24 1 tab Daily( patient took self off this three weeks ago) 2. Lamictal Oral 50 mg twice daily ( patient took self off this three weeks ago) 3. levothyroxine 75 mcg Oral tab 1 tab once daily (Last dose: 08/17/2016 06:00) - PMHx: Bipolar disorder; Hypothyroidism; - PSHx: none; - Social history: Smoking status: unknown if patient ever smoked tobacco. No barriers to communication noted, The patient speaks fluent [place]. - Family history: Not pertinent. - : The pt / caregiver states he / she is not on anticoagulants. Home medication list is obtained from [employer] import data. - Exposure Risk Screening:: None identified. Screenin:56 Screening information is obtained from the patient. Fall risk: No risks identified. ml6 Assistance ADL's: requires no assistance with activities of daily living. Abuse/DV Screen: The patient / caregiver reports he/she is: not in a situation that causes fear, pain or injury. Nutritional screening: No deficits noted. Advance Directives: Currently, there is no health care proxy. home support is adequate. Assessment: 16:12 General: since initial Triage patient has been sitting at the second triage desk kcs accompanied by his 2 escorts. 16:59 General: Appears in no apparent distress, Behavior is appropriate for age, cooperative. srm Neurological: Level of Consciousness is awake, alert, Oriented to person, place, time, Moves all extremities. Full function Gait is steady, Speech is normal, Facial symmetry appears normal. Respiratory: No deficits noted. GI: No deficits noted. 18:02 General: Appears in no apparent distress, comfortable, Behavior is appropriate for age, ml6 cooperative. Pain: Denies pain. Neurological: No deficits noted. Level of Consciousness is awake, alert, Oriented to person, place, time, Exterminator Termite are Moves all extremities. Cardiovascular: No deficits noted. Capillary refill < 3 seconds is brisk in bilateral fingers toes Heart tones S1 S2 present. Respiratory: No deficits noted. Airway is patent Respiratory effort is even, unlabored. 19:24 General: Appears in no apparent distress, comfortable, Behavior is appropriate for age, af2 cooperative, flat, Assumed care of pt at this time, pt seated in upright position. Offers no complaints. escort at bedside. MOHAN staff observing pt at this time. Will continue to monitor. . Neurological: Level of Consciousness is awake, alert, Oriented to person, place, time. Respiratory: Airway is patent Respiratory effort is even, unlabored. 20:22 General: Appears in no apparent distress, comfortable, Behavior is appropriate for age, af2 cooperative, this development writer verified home medications with pt including scheduled times and last dosage time- pt confirms he only takes Synthroid at 0600, last dose this morning and states that he stopped taking his other medications on his own [address] Snell notified of this information. escort remains at bedside. MOHAN staff observing, will continue to monitor. . Neurological: Level of Consciousness is awake, alert. Respiratory: Airway is patent Respiratory effort is even, unlabored. Derm: Skin is normal. 20:51 General: Appears in no apparent distress, Behavior is cooperative, pt lying on af2 stretcher quietly in room 19. report given to Bruno Snider RN at this time. He has agreed to assume care of pt.. 21:08 General: Appears in no apparent distress, comfortable, Behavior is appropriate for age, jmb cooperative, flat, Patient laying on stretcher, appears comfortable. Patient commanding officer at bedside. NO voiced complaints at this time. . Pain: Denies pain. Neurological: Level of Consciousness is awake, alert, obeys commands, Oriented to person, place, time, Exterminator Termite are equal bilaterally Moves all extremities. Full function Gait is steady, Speech is normal, Facial symmetry appears normal, Facial symmetry: tongue is midline. Cardiovascular: Capillary refill < 3 seconds Heart tones S1 S2 present Pulses are all present. Rhythm is regular. Respiratory: Airway is patent Respiratory effort is even, unlabored, Respiratory pattern is regular, symmetrical, Breath sounds are clear bilaterally. GI: Abdomen is non- distended Bowel sounds present X 4 quads. Abd is soft and non tender X 4 quads. Derm: Skin is pink, warm & dry. Musculoskeletal: Range of motion intact in all extremities. 21:41 General: Appears in no apparent distress, comfortable, Behavior is appropriate for age, jmb cooperative, Patient laying on stretcher with commanding officer at bedside. Patient denies discomfort at this time. . Neurological: Level of Consciousness is awake, alert, obeys commands. Respiratory: Airway is patent Respiratory effort is even, unlabored, Respiratory pattern is regular, symmetrical. 22:20 General: Appears in no apparent distress, comfortable, Behavior is appropriate for age, jmb cooperative, Patient laying on stretcher, appears comfortable. Commanding officer at bedside. NO voiced complaints at this time. . Neurological: Level of Consciousness is awake, alert, obeys commands, Oriented to person, place, time. Respiratory: Airway is patent Respiratory effort is even, unlabored, Respiratory pattern is regular, symmetrical. 22:50 General: Appears in no apparent distress, comfortable, Behavior is appropriate for age, jmb cooperative, Patient laying on stretcher, appears comfortable. Patient denies discomfort at this time. . Neurological: Level of Consciousness is awake, alert, obeys commands, Oriented to person, place, time. Respiratory: Airway is patent Respiratory effort is even, unlabored, Respiratory pattern is regular, symmetrical. 23:30 General: Appears in no apparent distress, comfortable, Behavior is appropriate for age, jmb cooperative. Neurological: Level of Consciousness is awake, alert, obeys commands, Oriented to person, place, time. Respiratory: Airway is patent Respiratory effort is even, unlabored, Respiratory pattern is regular, symmetrical. 08/18 00:04 General: Appears in no apparent distress, comfortable, Behavior is appropriate for age, jmb cooperative, Patient up to bathroom. NO voiced complaints at this time. . Neurological: Level of Consciousness is awake, alert, obeys commands, Oriented to person, place, time. Respiratory: Airway is patent Respiratory effort is even, unlabored, Respiratory pattern is regular, symmetrical. 01:38 General: Appears in no apparent distress, comfortable, Behavior is appropriate for age, jmb cooperative, Patient appears to be asleep, easy to arouse. Voices no complaints at this time. . Neurological: Level of Consciousness is awake, alert, obeys commands, Oriented to person, place, time. Respiratory: Airway is patent Respiratory effort is even, unlabored, Respiratory pattern is regular, symmetrical. 02:03 General: Appears in no apparent distress, comfortable, Behavior is appropriate for age, jmb cooperative. Pain: Denies pain. Neurological: Level of Consciousness is awake, alert, obeys commands, Oriented to person, place, time, Exterminator Termite are equal bilaterally Speech is normal, Facial symmetry appears normal, Facial symmetry: tongue is midline. Cardiovascular: Capillary refill < 3 seconds Heart tones S1 S2 present Pulses are all present. Rhythm is regular. Respiratory: Airway is patent Respiratory effort is even, unlabored, Respiratory pattern is regular, symmetrical, Breath sounds are clear bilaterally. GI: Abdomen is non- distended Bowel sounds present X 4 quads. Abd is soft and non tender X 4 quads. Derm: Skin is pink, warm & dry. Musculoskeletal: Range of motion intact in all extremities. 02:21 General: Patient leaving ER to [facility]. ramesh Mental Health Eval: 08/17 21:03 Mental health consult is initiated at 20:00. Status: The patient is an active ac duty mechanical service technician. [facility] Behavioral Health: The patient is not an established patient of [facility] Behavioral Health. Referral Information: Evaluation referral is generated by the patient's therapist Bryant Loaiza at [facility]. The patient was referred for evaluation because of apparent exacerbation of Bipolar D/O, including SI. Subjective: The patients chief complaint is [No answer], when asked the reason for his visit here today. Delusions are not elicited presently, nor are hallucinations. Patient's mood is depressed. Patient is a poor historian, who is very difficult to engage. Most of the hx is obtained from his EMR, clinic note from [facility] & his Geriatric Physician (Fernando). When attempting to engage patient, he generally stares straight ahead, appearing unable to think clearly or comprehend most questions. He initially denied seeing today, then later said that he had (after being corrected by his SL). He said that he has been depressed, although only admitted to this when prompted by this development writer repeating clinic notes. Patient was able to accurately recite the date & location, although little else. Per review of his EMR, he was admitted here in January for 3 weeks & D/C with a dx of Bipolar D/O. Per review of his clinic note from today, he was transferred to [facility] in May, where he had an extended stay after attempting suicide by cutting his wrist with a broken CD (while on their unit). In June he was sent to [facility], where he received 8 sessions of ECT. He returned on 07/29, appearing to be improved. He has since stopped his meds & his condition has decompensated. His Geriatric Physician reported that he has regular contact with the patient, "And today was by far the worst". SL reported that he began attempting to get patient out of bed to report to work at 10:45 am, although patient was not responding to requests & kept falling asleep. This continued until after 2:00 pm, when he was eventually taken to , where he revealed feeling suicidal for the last several days. At this point he appears unsafe & unreliable. 21:49 Narrative: This assessment & documentation was completed by Luigi Srinivasan & charted ac under Martin James. 21:56 Mental Health history: Bipolar Disorder, depression, paranoia, psychosis, sleep jl disturbance, suicide attempt by cutting Mental Health Admissions: [facility]: 01/2016, [facility]: 05/2016 & [facility]: 06/2016 Current Outpatient Mental Health Services: Psychiatrist / Agency: [facility]. Therapist / Agency: [facility]. Current living environment is The patient currently lives in a [facility]. Patient presents to Emergency Department with the following symptoms within the past 2 weeks: depressed mood, non-compliance, poor concentration, psychosis, sleep disturbance - excessive sleeping, suicidal ideation with no plan. Substance abuse: None known. Mental status exam: Patients appearance is appropriate, Patient's behavior is bizarre, inhibited, minimally responsive Speech is unspontaneous Affect is flat. Mood is depressed. Hallucinations are not evident. Appetite is unable to obtain Memory is poor. Patient's insight is poor. Judgement is poor. Remainder of MSE is deferred due to patient's condition. Disposition: Medically cleared for disposition by Lorenza Santos MD Psychiatric Consult is performed by phone with Dr Yara Wick. [facility] Admission Criteria: The patient is experiencing suicidal ideation. The patient displays symptoms of severe psychiatric disorder resulting in disordered behavior and significant interference with his / her ability to maintain self care. The patient requires continuous observation and/or control to protect self, others or property. The patient's care requires a multi-modal treatment plan under close supervision and coordination due to the complexity and severity of the patient's symptoms. Legal Status: Patient's legal status will be Emergency admission: 39. [place] because patient was registered less than 6 months ago. DSM-V Differential Diagnosis: Bipolar D/O, Unspecified. 22:04 Insurance Pre-Certification: Not Required. jl Psych: 17:00 Mental Health Triage Level: Level 2: The patient displays active suicidal ideations. srm 17:00 Objective: Patient is cooperative, Speech is normal. Affect is appropriate. Vital Signs: 15:21 BP 121 / 91; Pulse 79; Resp 16; Temp 97.8; Pulse Ox 98% ; Weight 72.57 kg; Height 5 ft. cmb 5 in. (165.10 cm); Pain 0/10; 21:08 BP 128 / 85; Pulse 60; Resp 18; Temp 98.5(TE); Pulse Ox 97% on R/A; Pain 0/10; jmb 08/18 02:06 BP 126 / 94; Pulse 60; Resp 18 S; Temp 97.3(O); Pulse Ox 98% on R/A; Pain 0/10; jp4 08/17 15:21 Body Mass Index 26.63 (72.57 kg, 165.10 cm) cmb Vitals: 08/17 15:21 Log In Time: August 17, 2016 at 15:18. b ED Course: 15:20 Patient visited by Tiff Lopez. cmb 15:20 [facility], [place] is Private Physician. cmb 15:20 Patient moved to Waiting cmb 15:21 RN notified that patient meets Red Flag criteria. cmb 15:35 Patient moved to Pre RCE gr2 15:43 Triage Initiated kcs 16:09 Patient moved to Psy Chair2 mb9 16:50 Patient moved to H2 srm 17:00 Patient visited by Ambar Perry RN. [facility] 17:00 Lorenza Santos MD is Attending Physician. ml 17:00 Patient visited by Lorenza Santos MD. ml 18:21 Patient visited by Yonatan Guevara, BOBBI. ml6 18:55 Patient visited by Yonatan Guevara RN. ml6 18:56 The patient / caregiver is instructed regarding the plan of care and ED course. ml6 18:56 No IV's were initiated during this patient's visit. No procedures done that require [facility] assistance. 18:58 Diet: Patient given regular meal. Tolerated well. rs6 18:58 Cardiac monitoring not applicable on this patient. Psych Safety Check: Location: [facility] Medical Room. Visual Assessment: Cooperative. 19:08 Patient visited by Patricia Sheets PCA. rs6 19:26 Patient visited by Smitha Sullivan,RN. af2 19:31 Patient visited by Patricia Sheets PCA. rs6 19:31 Diet: Patient given water. Tolerated well. rs6 19:47 Patient visited by Patricia Sheets PCA. rs6 19:47 EKG done. (by ED staff). Reviewed by Lorenza Santos MD. rs6 20:21 Patient visited by Smitha Sullivan RN. af2 20:26 Patient visited by Smitha Sullivan RN. af2 20:34 Patient moved to Aug 20:42 Patient visited by Patricia Sheets PCA. rs6 20:52 Patient visited by Smitha Sullivan RN. af2 21:10 Patient visited by Guy Snider RN. jmb 21:42 Patient visited by Guy Snider RN. jmb 22:05 Other: [place] [facility] Note was scanned into [employer] and attached to record. jl 22:20 Patient visited by Guy Snider RN. jmb 22:27 [facility] Legal paperwork was scanned into [employer] and attached to record. jl 22:31 Yara Wick is Hospitalizing Provider. ml 22:50 Patient visited by Guy Snider RN. jmb 08/18 00:04 Patient visited by Guy Snider RN. jmb 00:19 [facility] Payment Agreement was scanned into [employer] and attached to record. ks16 00:48 role handed off by Martin James PSA kb5 00:49 role handed off by Luigi Srinivasan PSA kb5 01:17 Jessica Valverde,RN is Primary Nurse. cf2 01:17 Patient visited by Jessica Valverde,BOBBI. cf2 01:39 Patient visited by Guy Snider RN. jmb 02:05 Patient visited by Guy Snider RN. jmb 02:07 Patient visited by Jesse Call. jp4 10:16 T-Sheet-- Draft Copy was scanned into [employer] and attached to record. gb 10:16 ECG/EKG was scanned into [employer] and attached to record. gb 15:16 T-Sheet-- Draft Copy was scanned into [employer] and attached to record. gb Attachments: 22:27 [facility] Legal paperwork jl Order Results: Lab Order: Acetaminophen Level; SPEC'M 08/17/16 17:07 Test: ACETAMINOPHEN LEVEL; Value: < 2.0; Range: 10.0-30.0; Abnormal: Below low normal; Units: UG/ML; Status: F Lab Order: Basic Metabolic Profile; SPEC'M 08/17/16 17:07 Test: GLUCOSE, FASTING; Value: 95; Range: 70-105; Units: MG/DL; Status: F Test: BLOOD UREA NITROGEN; Value: 8; Range: 7-18; Units: MG/DL; Status: F Test: CREATININE FOR GFR; Value: 1.00; Range: 0.70-1.30; Units: MG/DL; Status: F Test: GLOMERULAR FILTRATION RATE; Value: > 60.0; Range: >60; Status: F Test: SODIUM LEVEL; Value: 140; Range: 136-145; Units: MEQ/L; Status: F Test: POTASSIUM SERUM; Value: 4.1; Range: 3.5-5.1; Units: MEQ/L; Status: F Test: CHLORIDE LEVEL; Value: 103; Range: 98-107; Units: MEQ/L; Status: F Test: CARBON DIOXIDE LEVEL; Value: 28; Range: 21-32; Units: MEQ/L; Status: F Test: ANION GAP; Value: 9; Range: 8-16; Units: MEQ/L; Status: F Test: CALCIUM LEVEL; Value: 9.2; Range: 8.5-10.1; Units: MG/DL; Status: F Test Note: ; Units are mL/min/1.73 m2 Chronic Kidney Disease Staging per NKF: Stage I & II GFR >=60 Normal to Mildly Decreased Stage III GFR 30-59 Moderately Decreased Stage IV GFR 15-29 Severely Decreased Stage V GFR <15 Very Little GFR Left ESRD GFR <15 on AIRFRAME TECHNICAL OFFICER Lab Order: Complete Blood Count; SPEC'M 08/17/16 17:07 Test: WHITE BLOOD COUNT; Value: 6.0; Range: 4.0-10.0; Units: K/mm3; Status: F Test: RED BLOOD COUNT; Value: 4.70; Range: 4.30-6.10; Units: M/mm3; Status: F Test: HEMOGLOBIN; Value: 14.8; Range: 14.0-18.0; Units: g/dl; Status: F Test: HEMATOCRIT; Value: 42.8; Range: 42.0-52.0; Units: %; Status: F Test: MEAN CORPUSCULAR VOLUME; Value: 91.0; Range: 80.0-96.0; Units: fl; Status: F Test: MEAN CORPUSCULAR HEMOGLOBIN; Value: 31.5; Range: 27.0-33.0; Units: pg; Status: F Test: MEAN CORPUSCULAR HGB CONC; Value: 34.6; Range: 32.0-36.5; Units: g/dl; Status: F Test: RED CELL DISTRIBUTION WIDTH; Value: 11.8; Range: 11.5-14.5; Units: %; Status: F Test: PLATELET COUNT, AUTOMATED; Value: 309; Range: 150-450; Units: k/mm3; Status: F Lab Order: Drug Eval Toxicology ED Only; SPEC'M 08/17/16 17:07 Test: AMPHETAMINES LEVEL URINE; Value: NEGATIVE; Range: NEGATIVE; Status: F Test: BARBITURATES URINE; Value: NEGATIVE; Range: NEGATIVE; Status: F Test: BENZODIAZEPINES URINE; Value: NEGATIVE; Range: NEGATIVE; Status: F Test: CANNABINOIDS URINE; Value: NEGATIVE; Range: NEGATIVE; Status: F Test: COCAINE METABOLITE URINE; Value: NEGATIVE; Range: NEGATIVE; Status: F Test: METHADONE URINE; Value: NEGATIVE; Range: NEGATIVE; Status: F Test: OPIATES URINE; Value: NEGATIVE; Range: NEGATIVE; Status: F Test: TRICYCLIC ANTIDEPRESS URINE; Value: NEGATIVE; Range: NEGATIVE; Status: F Test Note: ; ALL PRESUMPTIVE POSITIVE FINDINGS ARE UNCONFIRMED NORMAL VALUES THRESHOLD IN NG/ML AMPHETAMINES 1000 METHAMPHETAMINES 1000 BARBITURATES 300 BENZODIAZEPINES 300 CANNABINOIDS (THC) 50 COCAINE METABOLITE 300 METHADONE 300 OPIATES 300 PHENCYCLIDINE 25 TRICYCLIC ANTIDEPRESSANTS 1000 RESULTS ARE FOR MEDICAL PURPOSES ONLY. ALL URINE SPECIMENS WILL BE SAVED FOR 3 DAYS. IF CONFIRMATION OF A PRESUMPTIVE POSTIVE SCREEN RESULT IS DESIRED, CALL CHEMISTRY ([phone]) AND REQUEST URINE TO BE SENT TO REFERENCE LAB. FOR A LIST OF CLOSELY RELATED COMPOUNDS PLEASE CALL THE LAB. Lab Order: Ethyl Alcohol (ethanol); SPEC'M 08/17/16 17:07 Test: ETHYL ALCOHOL (ETHANOL); Value: < 0.003; Range: 0.000-0.010; Units: %; Status: F Lab Order: Liver Profile; SPEC'M 08/17/16 17:07 Test: AST/SGOT; Value: 13; Range: 15-37; Abnormal: Below low normal; Units: U/L; Status: F Test: ALT/SGPT; Value: 25; Range: 12-78; Units: U/L; Status: F Test: ALKALINE PHOSPHATASE; Value: 108; Range: 45-117; Units: U/L; Status: F Test: BILIRUBIN,TOTAL; Value: 0.5; Range: 0.2-1.0; Units: MG/DL; Status: F Test: BILIRUBIN,DIRECT; Value: 0.1; Range: 0.0-0.2; Units: MG/DL; Status: F Test: TOTAL PROTEIN; Value: 7.6; Range: 6.4-8.2; Units: GM/DL; Status: F Test: ALBUMIN; Value: 4.9; Range: 3.2-5.2; Units: GM/DL; Status: F Test: ALBUMIN/GLOBULIN RATIO; Value: 1.81; Range: 1.00-1.93; Status: F Lab Order: Salicylate Level; SPEC'M 08/17/16 17:07 Test: SALICYLATE LEVEL; Value: < 1.7; Range: 5.0-30.0; Abnormal: Below low normal; Units: MG/DL; Status: F Lab Order: Thyroid Stimulating Hormone; SPEC'M 08/17/16 17:07 Test: THYROID STIMULATING HORMONE; Value: 3.030; Range: 0.358-3.740; Units: uIU/ML; Status: F Outcome: 08/17 22:32 Decision to Hospitalize by Provider. 08/18 02:03 Discharge Assessment: Patient awake, alert and oriented x 3. No cognitive and/or jmb functional deficits noted. Patient verbalized understanding of disposition instructions. Patient awake and alert. obeys commands, Oriented to person, place and time. Patient verbalized understanding of disposition instructions. Patient has no functional deficits. patient administered narcotics - no. The following High Risk Discharge criteria are identified: None. Admitted to Psych accompanied by tech, via wheelchair, with chart. Condition: stable. No special radiology studies were completed. Property :Personal belongings accompany Pt. 02:21 Patient left the ED. jmb Signatures: Lorenza Santos MD MD ml Madelaine Bloom, RN RN Ambar Kang, RN BOBBI srm Basil, Tona Maynard, RN Martin Allan, PSA PSA ac Luigi Srinivasan, PSA PSA jl GinChristy reyes, Reg Reg gb [place], Humberto, WAXING MACHINE OPERATOR WAXING MACHINE OPERATOR kb5 Yonatan Guevara RN RN ml6 Tiff Lopez cmb Joanna Velez gr2 Guy SniderRN RN jmb Jesse Call jp4 Jersey Kamara,RN RN mb9 Sheets, Patricia, WAXING MACHINE OPERATOR WAXING MACHINE OPERATOR rs6 Smitha SullivanRN RN af2 Batsheva Reyes, Reg Reg ks16 Jessica ValverdeRN RN cf2 Corrections: (The following items were deleted from the chart) 08/17 15:45 15:39 Presenting complaint: patient told his social worker health services that is SI every day - kcs recently discharged for m facility. Also having short term memory loss. kcs 15:48 15:39 Presenting complaint: patient told his social worker health services that is SI every day - kcs recently discharged for [facility] facility. Also having short term memory loss. kcs 20:10 15:43 Home Meds: levothyroxine 75 mcg Oral tab 1 tab once daily; kcs af2 22:04 21:03 Subjective: The patients chief complaint is [No answer], when asked the reason jl for his visit here today. Delusions are not elicited presently, nor are hallucinations. Patient's mood is depressed. Patient is a poor historian, who is very difficult to engage. Most of the hx is obtained from his EMR, clinic note from [facility] HEALTHCARE SERVICES & his Geriatric Physician (Fernando). When attempting to engage patient, he generally stares straight ahead, appearing unable to think clearly or comprehend most questions. He initially denied seeing today, then later said that he had (after being corrected by his SL). He said that he has been depressed, although only admitted to this when prompted by this development writer repeating clinic notes. Patient was able to accurately recite the date & location, although little else. Per review of his EMR, he was admitted here in January for 3 weeks & D/C with a dx of Bipolar Type I. Per review of his clinic note from today, he was transferred to [facility] in May, where he had an extended stay after attempting suicide by cutting his wrist with a broken CD (while on their unit). In June he was sent to [facility], where he received 8 sessions of ECT. He returned on 07/29, appearing to be improved. He has since stopped his meds & his condition has decompensated. His Geriatric Physician reported that he has regular contact with the patient, "And today was by far the worst". SL reported that he began attempting to get patient out of bed to report to work at 10:45 am, although patient was not responding to requests & kept falling asleep. This continued until after 2:00 pm, when he was eventually taken to , where he revealed feeling suicidal for the last several days. At this point he appears unsafe & unreliable ac Chart Complete MTDD
[2016-08-20] MEDS: LEVOTHYROXINE 0.075 MG TAB (75 MCG) PO SCH (06:05)
[2016-08-20 06:29] VITALS: BP 118/77
[2016-08-20] MEDS: NICOTINE 14 MG/24 HR TRANSDERMAL TD SCH (09:29)
[2016-08-20] MEDS: TAMSULOSIN 0.4 MG CAP PO SCH (09:29)
[2016-08-20] MEDS: PALIPERIDONE 6 MG ER TAB (INVEGA) PO SCH (09:29)
[2016-08-20 18:22] VITALS: BP 128/68
[2016-08-20] MEDS: PARoxetine 20 MG TAB PO SCH (20:48)
[2016-08-20] MEDS: traZODone 50 MG TAB PO PRN (20:48)
--- NOTE | 2016-08-20 23:15 | IPN ---
DATE: 08/20/2016 TREATMENT: Marlon is seen and the treatment reviewed. He is in his third day of inpatient hospital admission and he currently has been started on a combination of Invega 6 mg orally daily and paroxetine 20 mg orally daily for management of his depressive symptoms as well as psychotic related ones. He is offered group, individual, and activity therapies. However, it has been noted that he has not been attending psychoeducational groups; rather, he is mostly in bed and rarely interacts with others with notable psychomotor retardation. He accepted the of his medication and reported no side effects. OBSERVATION: His vital signs are relatively stable. He is calm. Mood remains notably depressed. Speech lacks spontaneity. He refuses to respond to most questions and is notably guarded. ASSESSMENT: He continues to have significant mood symptomatology. PLAN: He will be continued on the current medications with ongoing assessment and supportive therapy. Dose will be adjusted as clinically indicated. MTDD
[2016-08-21] MEDS: LEVOTHYROXINE 0.075 MG TAB (75 MCG) PO SCH (06:29)
[2016-08-21 06:46] VITALS: BP 136/93
[2016-08-21] MEDS: PALIPERIDONE 6 MG ER TAB (INVEGA) PO SCH (08:35)
[2016-08-21] MEDS: TAMSULOSIN 0.4 MG CAP PO SCH (08:35)
[2016-08-21] MEDS: NICOTINE 14 MG/24 HR TRANSDERMAL TD SCH (08:35)
[2016-08-21 18:00] VITALS: BP 114/76
[2016-08-21] MEDS: traZODone 50 MG TAB PO PRN (21:09)
[2016-08-21] MEDS: PARoxetine 20 MG TAB PO SCH (21:09)
[2016-08-22] MEDS: LEVOTHYROXINE 0.075 MG TAB (75 MCG) PO SCH (06:16)
[2016-08-22 06:41] VITALS: BP 123/70
[2016-08-22] MEDS: PALIPERIDONE 6 MG ER TAB (INVEGA) PO SCH (08:19)
[2016-08-22] MEDS: NICOTINE 14 MG/24 HR TRANSDERMAL TD SCH (08:19)
[2016-08-22] MEDS: TAMSULOSIN 0.4 MG CAP PO SCH (08:19)
[2016-08-22 18:35] VITALS: BP 122/73
[2016-08-22] MEDS: PARoxetine 20 MG TAB PO SCH (20:52)
[2016-08-22] MEDS: traZODone 50 MG TAB PO PRN (20:52)
--- NOTE | 2016-08-22 22:10 | IPN ---
DATE OF SERVICE: 08/22/2016 TREATMENT: Current medications: Paroxetine 20 mg orally daily, Invega 60 mg orally daily. In addition is provided with group, individual and activity therapies. He presents with no new problems today. He states that he has been taking his medications and that he feels a little better. He says that his depression seems to be showing improvement and he is not actively entertaining thoughts of suicide or homicide. OBSERVATION: VITAL SIGNS: Blood pressure 123/70, pulse 65, respirations 16, temperature 96.6. He is observed to be more interacting today as he is observed socializing with his peers in the day room, and watching a football game. He also attended group activities and mostly was out of his bed. He is observed to be less depressed relative to his admission status. Psychomotor activity remains slightly low. No medication related adverse events and no psychotic features evident. He denies active suicidal/homicidal thoughts, plans, or intent. ASSESSMENT: He continues to tolerate medications and has begun to show some response to treatment, with no adverse event evident. However, inpatient hospitalization is still needed to further stabilize patient's symptoms. PLAN: He will continue on the current medication with ongoing reviews. THOMAS
[2016-08-23 05:59] VITALS: BP 123/66
[2016-08-23] MEDS: LEVOTHYROXINE 0.075 MG TAB (75 MCG) PO SCH (06:20)
[2016-08-23] MEDS: NICOTINE 14 MG/24 HR TRANSDERMAL TD SCH (08:35)
[2016-08-23] MEDS: TAMSULOSIN 0.4 MG CAP PO SCH (08:35)
[2016-08-23] MEDS: PALIPERIDONE 6 MG ER TAB (INVEGA) PO SCH (08:35)
[2016-08-23 18:27] VITALS: BP 104/61
--- NOTE | 2016-08-23 19:58 | IPN ---
DATE: 08/23/2016 TREATMENT: Today is the 6th day of inpatient admission for this patient who is diagnosed with major depressive disorder and currently being prescribed paroxetine 20 mg orally daily and Invega 6 mg orally daily. He reports that he has been taking his medication and feeling increasingly better; however, he still states that he feels a little depressed and having poor appetite and occasional difficulty sleeping. He denies active suicidal thoughts or plans. OBSERVATION: Vital signs: Blood pressure 123/66, pulse 64, respirations 20, temperature 97.6. He is tolerating current treatment and responding positively; however, he continues to experience some symptomatology and requires ongoing inpatient admission for stabilization. No psychotic features are evident. PLAN: Continue current medications. THOMAS
[2016-08-23] MEDS: PARoxetine 20 MG TAB PO SCH (21:19)
[2016-08-23] MEDS: traZODone 50 MG TAB PO PRN (21:19)
[2016-08-24 06:07] VITALS: BP 112/70
[2016-08-24] MEDS: LEVOTHYROXINE 0.075 MG TAB (75 MCG) PO SCH (06:08)
[2016-08-24] MEDS: NICOTINE 14 MG/24 HR TRANSDERMAL TD SCH (08:25)
[2016-08-24] MEDS: TAMSULOSIN 0.4 MG CAP PO SCH (08:25)
[2016-08-24] MEDS: PALIPERIDONE 6 MG ER TAB (INVEGA) PO SCH (08:26)
--- NOTE | 2016-08-24 16:40 | IPN ---
DATE OF SERVICE: 08/24/2016 TREATMENT: The patient is seen on his seventh day of inpatient hospital admission. He is diagnosed with major depressive disorder and currently has been prescribed a combination of paroxetine 20 mg orally daily for management of depression and Invega 6 mg orally daily for treatment of psychotic features. He continues to be provided with therapeutic programming. Reports today that he has been complying with the treatment, feeling a little better; however, he states that he still feels depressed. He says he currently is no longer having active thoughts of suicide of homicide, although stated that the night prior that he did have some fleeting thoughts of not wanting to live anymore. OBSERVATION: Blood pressure 112/70, pulse 64, respirations 16, temperature 96.7. The patient is noted today to be slightly withdrawn, mostly in his room on his bed, although he was earlier up and about to take his breakfast. His mood is dysphoric. Affect constricted. No psychotic features noted. He denies suicidal, homicidal thought, plans or intent. ASSESSMENT: No medication-related untoward effect and he seems to have no notable change in status other than noted the day prior. He continues currently to experience significant symptoms of his disorder. PLAN: He will be continued on the current treatment with ongoing encouragement to participate actively in therapeutic programs. THOMAS
[2016-08-24 18:00] VITALS: BP 120/70
[2016-08-24] MEDS: traZODone 50 MG TAB PO PRN (21:04)
[2016-08-24] MEDS: PARoxetine 20 MG TAB PO SCH (21:04)
[2016-08-25] MEDS: LEVOTHYROXINE 0.075 MG TAB (75 MCG) PO SCH (06:16)
[2016-08-25 06:36] VITALS: BP 105/72
[2016-08-25] MEDS: TAMSULOSIN 0.4 MG CAP PO SCH (08:25)
[2016-08-25] MEDS: PALIPERIDONE 6 MG ER TAB (INVEGA) PO SCH (08:25)
[2016-08-25] MEDS: NICOTINE 14 MG/24 HR TRANSDERMAL TD SCH (08:25)
[2016-08-25 18:00] VITALS: BP 102/62
--- NOTE | 2016-08-25 19:51 | IPN ---
DATE: 08/25/2016 TREATMENT: Marlon is seen today, his third day of inpatient admission, and his treatment is reassessed. He currently remains on paroxetine 20 mg orally daily in combination with Invega 6 mg orally daily. The patient states today that he has been taking the medications and he is experiencing no side effects. He reports that he is doing better; however, he still experiences some depressive symptoms including depressed mood and slight decrease in energy level. He reports his sleep as improving; however, he still reports problems with the quality of sleep he does have. No reported medication side effects. OBSERVATION: Vital signs: Blood pressure 105/72, pulse 69, respirations 19, temperature 95.2. The patient is calm, cooperative. His mood slightly depressed. Affect is constricted. He denies suicidal or homicidal thoughts, plan or intent. No psychotic features evident. ASSESSMENT: He is responding to medications; however, response has so far not been robust. PLAN: Paxil will further be increased to 30 mg orally at bedtime to improve his current depressive symptoms. Ongoing assessment and supportive therapy. [facility]
[2016-08-25] MEDS: traZODone 50 MG TAB PO PRN (21:16)
[2016-08-25] MEDS: PARoxetine 10MG TABLET PO SCH (21:16)
[2016-08-26] MEDS: LEVOTHYROXINE 0.075 MG TAB (75 MCG) PO SCH (05:53)
[2016-08-26 06:19] VITALS: BP 109/66
[2016-08-26] MEDS: PALIPERIDONE 6 MG ER TAB (INVEGA) PO SCH (08:31)
[2016-08-26] MEDS: NICOTINE 14 MG/24 HR TRANSDERMAL TD SCH (08:31)
[2016-08-26] MEDS: TAMSULOSIN 0.4 MG CAP PO SCH (08:32)
--- NOTE | 2016-08-26 12:35 | IPN ---
DATE: 08/26/2016 TREATMENT: This is the 9th day of inpatient hospital admission for Marlon who currently is being prescribed paroxetine 20 mg orally daily and Invega 6 mg orally daily for management of his mood and psychotic symptoms. He has been compliant with his medications so far, and no major incidents involving him in the past 24 hours. He reports having slept relatively better overnight and no new complaints presented. OBSERVATION: The patient's vital signs are stable. Blood pressure 109/66. Pulse 64. Respirations 18. Temperature 96. The patient is noticed to still appear to have some psychomotor retardation. Affect is dysphoric. He denies suicidal or homicidal plan or intent. No evidence of delusions, hallucinations, or other notable psychotic features. ASSESSMENT: No major change in mental status over the past 24 hours. He remains relatively depressed, although noted to be responding to treatment; however, such a response still has not been robust. PLAN: He will be continued on the current treatment with ongoing medication reviews and dosage adjustment as may be clinically indicated. WANDAD
[2016-08-26 18:00] VITALS: BP 104/62
[2016-08-26] MEDS: PARoxetine 10MG TABLET PO SCH (21:05)
[2016-08-26] MEDS: traZODone 50 MG TAB PO PRN (21:05)
[2016-08-27] MEDS: LEVOTHYROXINE 0.075 MG TAB (75 MCG) PO SCH (05:58)
[2016-08-27 06:12] VITALS: BP 130/72
[2016-08-27] MEDS: NICOTINE 14 MG/24 HR TRANSDERMAL TD SCH (08:26)
[2016-08-27] MEDS: PALIPERIDONE 6 MG ER TAB (INVEGA) PO SCH (08:26)
[2016-08-27] MEDS: TAMSULOSIN 0.4 MG CAP PO SCH (08:26)
--- NOTE | 2016-08-27 11:33 | IPN ---
DATE: 08/27/2016 TREATMENT: Marlon is seen today and his treatment reviewed. He is on his 10th day of inpatient hospital admission and is currently prescribed 20 mg of Paxil daily for management of depression, Invega 6 mg orally daily for psychotic symptoms. He continues to take his medications and is reported to be quite compliant, and recently has been attending group and individual therapy sessions. However, he still complains of feeling depressed. OBSERVATION: His vital signs are stable. He is noted to be slightly withdrawn , with decreased psychomotor activity. Affect is constricted, mood depressed. No gross psychotic features evident. No medication-related adverse event. PLAN: The dose of paroxetine will further be increased from 20 to 30 mg orally at bedtime to better manage depressive symptoms. He will continue on same dose of Invega 6 mg. Ongoing assessment and supportive therapy. MTDD
[2016-08-27 18:00] VITALS: BP 115/71
[2016-08-27] MEDS: traZODone 50 MG TAB PO PRN (21:08)
[2016-08-27] MEDS: PARoxetine 10MG TABLET PO SCH (21:09)
[2016-08-28] MEDS: LEVOTHYROXINE 0.075 MG TAB (75 MCG) PO SCH (05:58)
[2016-08-28 06:05] VITALS: BP 110/78
[2016-08-28] MEDS: TAMSULOSIN 0.4 MG CAP PO SCH (08:38)
[2016-08-28] MEDS: NICOTINE 14 MG/24 HR TRANSDERMAL TD SCH (08:38)
[2016-08-28] MEDS: PALIPERIDONE 6 MG ER TAB (INVEGA) PO SCH (08:38)
[2016-08-28 18:00] VITALS: BP 110/60
[2016-08-28] MEDS: traZODone 50 MG TAB PO PRN (20:54)
[2016-08-28] MEDS: PARoxetine 10MG TABLET PO SCH (20:54)
[2016-08-29] MEDS: LEVOTHYROXINE 0.075 MG TAB (75 MCG) PO SCH (05:58)
[2016-08-29 06:16] VITALS: BP 113/70
[2016-08-29] MEDS: TAMSULOSIN 0.4 MG CAP PO SCH (08:10)
[2016-08-29] MEDS: PALIPERIDONE 6 MG ER TAB (INVEGA) PO SCH (08:10)
[2016-08-29] MEDS: NICOTINE 14 MG/24 HR TRANSDERMAL TD SCH (08:10)
[2016-08-29 18:00] VITALS: BP 110/60
[2016-08-29] MEDS: traZODone 50 MG TAB PO PRN (20:53)
[2016-08-29] MEDS: PARoxetine 10MG TABLET PO SCH (20:53)
[2016-08-30] MEDS: LEVOTHYROXINE 0.075 MG TAB (75 MCG) PO SCH (06:01)
[2016-08-30 06:28] VITALS: BP 142/67
[2016-08-30] MEDS: TAMSULOSIN 0.4 MG CAP PO SCH (09:28)
[2016-08-30] MEDS: PALIPERIDONE 6 MG ER TAB (INVEGA) PO SCH (09:28)
[2016-08-30] MEDS: NICOTINE 14 MG/24 HR TRANSDERMAL TD SCH (09:28)
[2016-08-30 18:00] VITALS: BP 110/60
--- NOTE | 2016-08-30 18:56 | IPN ---
DATE: 08/30/2016 MEDICATIONS: - Paxil 30 mg by mouth nightly - Invega 6 mg by mouth every morning - trazodone 50 mg by mouth nightly as needed for insomnia SUBJECTIVE: The patient is somewhat minimizing his symptoms in order to be discharged. Patient appears to be tired. OBJECTIVE: Patient continues depressed with psychomotor retardation, sad, restricted facial expression, and very depressed, somewhat difficult to evaluate since patient is minimizing the symptoms. MENTAL STATUS EXAMINATION: Patient is dressed in [facility]. Patient is cooperative. Speech is slow and monotone. Mood is depressed and anxious. Affect is very restricted. No evidence of delusions or hallucinations. Memory is fair. Patient denies suicidal or homicidal ideation but again he is focused on discharge issues. Insight and judgment is limited. ASSESSMENT: 1. Bipolar disorder, depressive episode. PLAN: 1. Start Lamictal 25 mg by mouth twice a day. 2. Start Seroquel 100 mg by mouth nightly. 3. Continue with Paxil 30 mg by mouth nightly. 4. Continue with Invega 6 mg by mouth daily. 5. Continue with medication management and individual and group therapy. [facility]
[2016-08-30] MEDS: lamoTRIgine 25 MG TAB PO SCH (20:52)
[2016-08-30] MEDS: PARoxetine 10MG TABLET PO SCH (20:52)
[2016-08-30] MEDS ORDERED: QUEtiapine FUMARATE 100 MG TAB PO SCH (21:00)
[2016-08-31] MEDS: LEVOTHYROXINE 0.075 MG TAB (75 MCG) PO SCH (05:50)
[2016-08-31 06:30] VITALS: BP 102/64
[2016-08-31] MEDS: lamoTRIgine 25 MG TAB PO SCH ×2 (08:29→21:30)
[2016-08-31] MEDS: TAMSULOSIN 0.4 MG CAP PO SCH (08:29)
[2016-08-31] MEDS: PALIPERIDONE 6 MG ER TAB (INVEGA) PO SCH (08:29)
[2016-08-31] MEDS: NICOTINE 14 MG/24 HR TRANSDERMAL TD SCH (08:30)
[2016-08-31 18:00] VITALS: BP 102/61
--- NOTE | 2016-08-31 19:37 | IPN ---
DATE: 08/31/2016 31-year-old old male [employer] admitted with severe depression and suicidal thoughts. MEDICATIONS: - Paxil 30 mg by mouth every morning - Invega 50 mg by mouth at bedtime - Seroquel 100 mg by mouth at bedtime - Lamictal 25 mg by mouth twice a day SUBJECTIVE: "I am feeling about the same." OBJECTIVE: Patient continues to be very depressed, very flat facial expression and affect. Patient has severe psychomotor retardation. Patient is not interacting with other patient's and stays by himself mostly of the day. Patient denies side effect from the medication. MENTAL STATUS EXAMINATION: Patient is dressed in [facility]. Patient has poor eye contact. Speech is slow and monotone. Mood is depressed and anxious. Affect is restricted. No evidence of delusions or hallucinations. Memory is fair. Associations are intact. Patient denies suicidal ideation, but is minimizing the symptoms in order to be discharged. Insight and judgment is poor. ASSESSMENT: 1. Bipolar disorder depressive episode. PLAN; 1. Continue with Lamictal 20 mg by mouth twice a day. 2. Increase Seroquel to 150 mg by mouth at bedtime. 3. Continue with Paxil 30 mg by mouth at bedtime. 4. Decrease Invega to 3 mg by mouth daily. 5. Continue medication management, individual and group therapy.
[2016-08-31] MEDS ORDERED: QUEtiapine FUMARATE 50 MG TAB PO SCH (21:00)
[2016-08-31] MEDS: PALIPERIDONE 3 MG ER TAB (INVEGA) PO SCH (21:29)
[2016-08-31] MEDS: PARoxetine 10MG TABLET PO SCH (21:30)
[2016-09-01] MEDS: LEVOTHYROXINE 0.075 MG TAB (75 MCG) PO SCH (06:15)
[2016-09-01 06:36] VITALS: BP 117/66
[2016-09-01] MEDS: TAMSULOSIN 0.4 MG CAP PO SCH (08:38)
[2016-09-01] MEDS: lamoTRIgine 25 MG TAB PO SCH ×2 (08:38→20:57)
[2016-09-01] MEDS: NICOTINE 14 MG/24 HR TRANSDERMAL TD SCH (08:38)
[2016-09-01] MEDS ORDERED: PARoxetine 20 MG TAB PO SCH (09:00)
[2016-09-01] MEDS: PARoxetine 10MG TABLET PO SCH (09:32)
[2016-09-01 18:00] VITALS: BP 98/58
[2016-09-01] MEDS: PALIPERIDONE 3 MG ER TAB (INVEGA) PO SCH (20:57)
[2016-09-01] MEDS ORDERED: QUEtiapine FUMARATE 200 MG TAB PO SCH (21:00)
[2016-09-02] MEDS: LEVOTHYROXINE 0.075 MG TAB (75 MCG) PO SCH (06:08)
[2016-09-02 06:41] VITALS: BP 105/66
[2016-09-02] MEDS: NICOTINE 14 MG/24 HR TRANSDERMAL TD SCH (08:43)
[2016-09-02] MEDS: TAMSULOSIN 0.4 MG CAP PO SCH (08:43)
[2016-09-02] MEDS: PARoxetine 10MG TABLET PO SCH (08:43)
[2016-09-02] MEDS: lamoTRIgine 25 MG TAB PO SCH ×2 (08:43→20:51)
--- NOTE | 2016-09-02 15:12 | IPN ---
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 MEDICATIONS: - Paxil 10 mg by mouth every morning - Lamictal 25 mg by mouth every morning and 50 mg by mouth nightly - Invega 3 mg by mouth nightly - Seroquel 200 mg by mouth nightly SUBJECTIVE: Patient reports improvement. OBJECTIVE: Although the patient reports improvement, patient continues to appear very depressed with psychomotor retardation, flat, sad, restricted facial expression. Patient is not interacting with other patients and staff, stays mostly in his room in the bed. Patient is denying any side effect from the medication. Reports is sleeping very poorly, about 2-3 hours a night. Denies any other side effect of the medication. MENTAL STATUS EXAMINATION: Patient is dressed in [facility]. Patient is cooperative. Poor eye contact. His speech is soft and monotone. Mood is very depressed. Affect is flat. No evidence of delusions or hallucinations. Memory is fair. Patient is fully oriented. Associations are intact. Thinking is logical. Thought content is appropriate. Patient is denying suicidal or homicidal ideation. Insight and judgment is poor. ASSESSMENT: 1. Bipolar disorder, depressive episode. PLAN: 1. Continue with Lamictal 25 mg by mouth every morning and 50 mg by mouth nightly. 2. Increase Seroquel to 400 mg by mouth nightly. 3. Continue with Paxil 10 mg by mouth every morning. 4. Continue Invega 3 mg by mouth daily. 5. Continue medication management and individual and group therapy.
[2016-09-02 18:00] VITALS: BP 102/61
--- NOTE | 2016-09-02 18:25 | IPN ---
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 MEDICATION: - Lamictal 25 mg by mouth twice a day - Seroquel 150 mg by mouth at night - Paxil 30 mg by mouth at night - Invega 3 mg by mouth daily SUBJECTIVE: "I could not sleep last night." The patient could not sleep more than two hours last night. No major depression. Continues very depressed with psychomotor retardation. Sad, restricted facial expressions. Not interacting with other patients and staff, mostly in his room all day. Denies side effect from the medication. MENTAL STATUS EXAMINATION: The patient is dressed in [facility]. Poor eye contact. Speech is slow and monotone. Has psychomotor retardation. Mood is depressed and anxious. Affect is restricted. No evidence of delusions or hallucinations. Memory, attention, and concentration is fair. The patient is able to contract for safety in the unit. Insight and judgment poor. ASSESSMENT: 1. Bipolar disorder, depressive episode. PLAN: 1. Increase Lamictal to 25 mg by mouth in the morning and 50 mg by mouth at night. 2. Increase Seroquel to 200 mg by mouth at night. 3. Decrease Paxil to 5 mg by mouth at night. 4. Continue with Invega 3 mg by mouth daily. 5. Continue medication management, individual and group therapy.
[2016-09-02] MEDS: PALIPERIDONE 3 MG ER TAB (INVEGA) PO SCH (20:51)
[2016-09-02] MEDS: QUEtiapine FUMARATE 200 MG TAB PO SCH (20:51)
[2016-09-03] MEDS: LEVOTHYROXINE 0.075 MG TAB (75 MCG) PO SCH (05:59)
[2016-09-03 06:41] VITALS: BP 102/56
[2016-09-03] MEDS: lamoTRIgine 25 MG TAB PO SCH ×2 (08:24→21:35)
[2016-09-03] MEDS: PARoxetine 10MG TABLET PO SCH (08:24)
[2016-09-03] MEDS: TAMSULOSIN 0.4 MG CAP PO SCH (08:24)
[2016-09-03] MEDS: NICOTINE 14 MG/24 HR TRANSDERMAL TD SCH (08:24)
[2016-09-03 18:15] VITALS: BP 123/73
--- NOTE | 2016-09-03 18:21 | IPN ---
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 MEDICATIONS: - Lamictal 25 mg by mouth every morning and 50 mg by mouth at bedtime - Seroquel 400 mg by mouth at bedtime - Paxil 10 mg by mouth daily - Invega 3 mg by mouth daily SUBJECTIVE: "I am feeling a little better." OBJECTIVE: No major changes. Patient still continues with significant psychomotor retardation. Flat, restricted facial expression and affect. Patient is subjectively improving; however, he appears very depressed. No evidence of psychotic symptoms. No auditory or visual hallucinations or delusions. Denies side effect from the medication. MENTAL STATUS EXAMINATION: The patient is dressed in [facility]. Has fair eye contact. Speech is slow and monotone. Has psychomotor retardation. Mood is depressed and anxious. Affect is restricted. No delusions or hallucinations. Memory, attention, and concentration are fair. The patient is able to contract for safety while in the unit. Insight and judgment are limited. ASSESSMENT: Bipolar disorder, depressive episode. PLAN: 1. Increase the Lamictal to 50 mg by mouth twice a day. 2. Continue with Seroquel 400 mg by mouth at bedtime. 3. Continue Paxil 10 mg by mouth daily. 4. Continue Invega 3 mg by mouth daily. 5. Continue medication management, individual and group therapy.
[2016-09-03] MEDS: QUEtiapine FUMARATE 200 MG TAB PO SCH (21:35)
[2016-09-03] MEDS: PALIPERIDONE 3 MG ER TAB (INVEGA) PO SCH (21:35)
[2016-09-04] MEDS: LEVOTHYROXINE 0.075 MG TAB (75 MCG) PO SCH (06:18)
[2016-09-04 06:36] VITALS: BP 104/59
[2016-09-04] MEDS: NICOTINE 14 MG/24 HR TRANSDERMAL TD SCH (08:55)
[2016-09-04] MEDS: TAMSULOSIN 0.4 MG CAP PO SCH (08:56)
[2016-09-04] MEDS: PARoxetine 10MG TABLET PO SCH (08:56)
[2016-09-04] MEDS: lamoTRIgine 25 MG TAB PO SCH ×2 (08:56→21:10)
[2016-09-04 18:00] VITALS: BP 106/62
[2016-09-04] MEDS: QUEtiapine FUMARATE 200 MG TAB PO SCH (21:10)
[2016-09-05] MEDS: LEVOTHYROXINE 0.075 MG TAB (75 MCG) PO SCH (06:15)
[2016-09-05 06:17] VITALS: BP 100/63
[2016-09-05] MEDS: TAMSULOSIN 0.4 MG CAP PO SCH (09:13)
[2016-09-05] MEDS: NICOTINE 14 MG/24 HR TRANSDERMAL TD SCH (09:13)
[2016-09-05] MEDS: lamoTRIgine 25 MG TAB PO SCH ×2 (09:13→21:22)
[2016-09-05] MEDS: PARoxetine 10MG TABLET PO SCH (09:13)
[2016-09-05 18:00] VITALS: BP 123/70
[2016-09-05] MEDS: QUEtiapine FUMARATE 200 MG TAB PO SCH (21:22)
[2016-09-06] MEDS: LEVOTHYROXINE 0.075 MG TAB (75 MCG) PO SCH (06:08)
[2016-09-06 06:41] VITALS: BP 103/54
[2016-09-06] MEDS: NICOTINE 14 MG/24 HR TRANSDERMAL TD SCH (08:41)
[2016-09-06] MEDS: TAMSULOSIN 0.4 MG CAP PO SCH (08:41)
[2016-09-06] MEDS: lamoTRIgine 25 MG TAB PO SCH ×2 (08:41→20:37)
[2016-09-06] MEDS: PARoxetine 10MG TABLET PO SCH (08:41)
--- NOTE | 2016-09-06 16:58 | IPN ---
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 MEDICATIONS: - Lamictal 50 mg by mouth twice a day - Seroquel 400 mg by mouth at bedtime - Paxil 10 mg by mouth daily SUBJECTIVE: "I can sleep better with current medication." OBJECTIVE: Patient is improving slowly. His psychomotor retardation has improved as is his facial expression. Now he is not in bed during the day and is coming out of his room more frequently. Denies side effect from the medication. No auditory or visual hallucinations or delusions. MENTAL STATUS EXAMINATION: Patient dressed in [facility]. Has fair eye contact. His speech is slow, poor and monotone. His psychomotor retardation has improved. His depression and anxiety is also improved. No delusions or hallucinations. Memory, attention and concentration are fair. Patient is able to contract for safety. Denies suicidal or homicidal ideation during the interview. Insight and judgment is improving. ASSESSMENT: Bipolar disorder, depressive episode. PLAN: 1. Increase Lamictal to 75 mg by mouth twice a day. 2. Continue Seroquel 400 mg by mouth at bedtime. 3. Continue with Paxil 10 mg by mouth every a.m. 4. Continue medication management, individual and group therapy.
[2016-09-06 18:00] VITALS: BP 116/71
[2016-09-06] MEDS: QUEtiapine FUMARATE 200 MG TAB PO SCH (20:37)
[2016-09-07] MEDS: LEVOTHYROXINE 0.075 MG TAB (75 MCG) PO SCH (06:13)
[2016-09-07 06:26] VITALS: BP 100/55
[2016-09-07] MEDS: PARoxetine 10MG TABLET PO SCH (08:55)
[2016-09-07] MEDS: lamoTRIgine 25 MG TAB PO SCH ×2 (08:56→20:52)
[2016-09-07] MEDS: TAMSULOSIN 0.4 MG CAP PO SCH (08:56)
[2016-09-07] MEDS: NICOTINE 14 MG/24 HR TRANSDERMAL TD SCH (08:56)
[2016-09-07 18:00] VITALS: BP 104/58
[2016-09-07] MEDS: QUEtiapine FUMARATE 200 MG TAB PO SCH (20:52)
[2016-09-08] MEDS: LEVOTHYROXINE 0.075 MG TAB (75 MCG) PO SCH (05:59)
[2016-09-08 06:28] VITALS: BP 98/55
[2016-09-08] MEDS: lamoTRIgine 25 MG TAB PO SCH ×2 (08:53→21:02)
[2016-09-08] MEDS: PARoxetine 10MG TABLET PO SCH (08:53)
[2016-09-08] MEDS: TAMSULOSIN 0.4 MG CAP PO SCH (08:53)
[2016-09-08] MEDS: NICOTINE 14 MG/24 HR TRANSDERMAL TD SCH (08:53)
--- NOTE | 2016-09-08 13:18 | IPN ---
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 MEDICATIONS: - Lamictal 75 mg by mouth twice a day - Seroquel 400 mg by mouth at bedtime - Paxil 100 mg by mouth daily SUBJECTIVE: "I feel better today." OBJECTIVE: The patient's mood continues to improve slowly. He has less psychomotor retardation than previous days and portrays facial expressions when talking. He has decreased energy in the morning, but it gets better as the day goes on. He has tried to attend all the psychotherapeutic activities of the unit. He is sleeping well with Seroquel. Denies any side effects from medications. MENTAL STATUS EXAMINATION: The patient is dressed in [facility] and groomed appropriately. His gait is slow. Psychomotor retardation is present, although improving. He makes fair eye contact throughout the interview and does show some facial expressions. Attitude is cooperative. Level of consciousness is drowsy. Oriented times three. Speech is slow and was monotone. Mood is depressed and anxious but improving. Affect is restricted and flat. Thoughts are logical, and thinking is goal directed. No delusions or hallucinations. The patient is able to contract for safety in our unit. Insight and judgment are impaired but improving. Attention and concentration are fair. Immediate, remote, and recent memory intact. Able to form abstract thoughts. ASSESSMENT: Bipolar disorder, depressed episode. PLAN: 1. Continue Lamictal 75 mg by mouth twice a day. 2. Continue Seroquel 400 mg by mouth at bedtime. 3. Continue with Paxil 10 mg by mouth every morning. 4. Continue medication management, individual and group therapy. My preceptor for this patient encounter was Dr. Kp Ramirez . The preceptor was physically present in the building during the encounter and was fully available. As needed, all aspects of the patient interview, examination, medical decision making process, and medical care plan development were reviewed and approved by the preceptor. The preceptor is aware and concurs with the plan as stated in the body of this note and will attest to such by his/her cosignature.
[2016-09-08 18:15] VITALS: BP 109/57
[2016-09-08] MEDS: QUEtiapine FUMARATE 200 MG TAB PO SCH (21:02)
[2016-09-09] MEDS: LEVOTHYROXINE 0.075 MG TAB (75 MCG) PO SCH (06:18)
[2016-09-09 06:42] VITALS: BP 100/60
[2016-09-09] MEDS ORDERED: QUEtiapine FUMARATE 100 MG TAB PO PRN (09:00)
[2016-09-09] MEDS: TAMSULOSIN 0.4 MG CAP PO SCH (09:06)
[2016-09-09] MEDS: NICOTINE 14 MG/24 HR TRANSDERMAL TD SCH (09:06)
[2016-09-09] MEDS: lamoTRIgine 25 MG TAB PO SCH ×2 (09:06→21:07)
[2016-09-09] MEDS: PARoxetine 10MG TABLET PO SCH (09:06)
[2016-09-09] MEDS ORDERED: NICO14PA TD (12:15)
--- NOTE | 2016-09-09 15:46 | IPNPDOC ---
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 MEDICATIONS: - Lamictal 75 mg by mouth twice a day - Seroquel 300 mg by mouth at bedtime - Seroquel 100 mg by mouth at bedtime as needed for insomnia - Paxil 10 mg by mouth daily SUBJECTIVE: "I'm doing well." OBJECTIVE: The patient's mood continues to improve slowly. Less psychomotor retardation is noted and he continues to have facial expressions during conversations. His gait is noted to be much faster today than previous days. He spends more time outside of his room than laying in bed now. Has been attending the therapeutic activities of the unit. His mood remains depressed but he states it is much more stable and is improving. He is cautiously optimistic for what the future holds for him as his mother is flying up from [place] tomorrow and he will be relocating there with her and his father. He was very lethargic this morning after sleeping 9 hours, but is grateful to be able to sleep. Previously couldn't sleep through the night and was never tired. Will decrease seroquel dosage. Denies any other side effects from medications. MENTAL STATUS EXAMINATION: The patient is dressed in [facility] and a sweatshit. Groomed appropriately. His gait has increased since yesterday . Psychomotor retardation continues to improve. He makes fair eye contact throughout the interview and show some facial expressions. Attitude is cooperative and he is able to follow commands. He is alert and oriented times three. Speech is at a normal rate and was monotone. Mood is depressed and anxious but continues to improve. He is cautiously optimistic about his future. Affect is congruent with mood. Thoughts are logical, and thinking remains goal directed. No delusions or hallucinations. The patient is able to contract for safety in our unit. Insight and judgment are impaired but continue to improve. Attention and concentration improving. Immediate, remote, and recent memory intact. Able to form abstract thoughts. ASSESSMENT: Bipolar disorder, depressed episode. PLAN: 1. Continue Lamictal 75 mg by mouth twice a day. 2. Decrease Seroquel to 300 mg by mouth at bedtime. 3. Begin Seroquel 100 mg by mouth at bedtime as needed for insomnia. 4. Continue with Paxil 10 mg by mouth every morning. 5. Continue medication management, individual and group therapy. 6. If patient continues to improve, may be discharged tomorrow. Vital Signs Vital Signs Date Time Temp Pulse Resp B/P Pulse Ox O2 Delivery O2 Flow Rate FiO2 09/09/16 06:42 98.7 66 16 100/60 Current Medications Current Medications Acetaminophen (Tylenol) 650 mg Q6HP PRN PO HEADACHE or DISCOMFORT; Start at 00:45; Stop 09/17/16 at 00:44 Al Hydrox/Mg Hydrox/Simethicone (Mylanta) 30 ml Q4HP PRN PO HEARTBURN/ INDIGESTION; Start 08/18/16 at 00:45; Stop 09/17/16 at 00:44 Home Med (Med Rec Complete!) ASDIRECTED XX ; Start 08/17/16 at 23:15; Stop at 02:36; Status DC Lamotrigine (LaMICtal) 25 mg BID PO Last administered on 09/01/16 08:38; Start 08/30/16 at 21:00; Stop 09/01/16 at 08:50; Status DC Lamotrigine (LaMICtal) 25 mg QAM PO Last administered on 09/03/16 08:24; Start 09/02/16 at 09:00; Stop 09/03/16 at 09:05; Status DC Lamotrigine (LaMICtal) 50 mg BID PO Last administered on 09/06/16 08:41; Start 09/03/16 at 21:00; Stop 09/06/16 at 16:19; Status DC Lamotrigine (LaMICtal) 50 mg QHS PO Last administered on 09/02/16 20:51; Start 09/01/16 at 21:00; Stop 09/03/16 at 09:05; Status DC Lamotrigine (LaMICtal) 75 mg BID PO Last administered on 09/09/16 09:06; Start 09/06/16 at 21:00; Stop 10/06/16 at 20:59 Levothyroxine Sodium (Synthroid) 0.075 mg DAILY@06 PO Last administered on 09/09 06:18; Start 08/18/16 at 06:00; Stop 09/17/16 at 05:59 Magnesium Hydroxide (Milk Of Magnesia) 30 ml DAILYPRN PRN PO CONSTIPATION; Start 08/18/16 at 00:45; Stop 09/17/16 at 00:44 Nicotine (Nicoderm Cq 14mg) 1 patch DAILY TD Last administered on 09/09/16 09: 06; Start 08/18/16 at 09:00; Stop 09/17/16 at 08:59 Paliperidone (Invega) 3 mg QHS PO Last administered on 09/03/16 21:35; Start 08/31/16 at 21:00; Stop 09/04/16 at 11:22; Status DC Paliperidone (Invega) 6 mg DAILY PO Last administered on 08/31/16 08:29; Start 08/20/16 at 09:00; Stop 08/31/16 at 09:07; Status DC Paroxetine HCl (PAXil) 10 mg QAM PO Last administered on 09/09/16 09:06; Start 09/01/16 at 09:00; Stop 10/01/16 at 08:59 Paroxetine HCl (PAXil) 20 mg DAILY PO ; Start 09/01/16 at 09:00; Stop 09/01/16 at 09:00; Status DC Paroxetine HCl (PAXil) 20 mg QHS PO Last administered on 08/24/16 21:04; Start 08/19/16 at 21:00; Stop 08/25/16 at 19:28; Status DC Paroxetine HCl (PAXil) 30 mg QHS PO Last administered on 08/31/16 21:30; Start 08/25/16 at 21:00; Stop 09/01/16 at 08:50; Status DC Quetiapine Fumarate (SEROquel) 100 mg QHS PO Last administered on 08/30/16 20: 52; Start 08/30/16 at 21:00; Stop 08/31/16 at 09:07; Status DC Quetiapine Fumarate (SEROquel) 100 mg QHSP PRN PO INSOMNIA; Start 09/09/16 at 09:00; Stop 10/09/16 at 08:59 Quetiapine Fumarate (SEROquel) 150 mg QHS PO Last administered on 08/31/16 21: 30; Start 08/31/16 at 21:00; Stop 09/01/16 at 10:04; Status DC Quetiapine Fumarate (SEROquel) 200 mg QHS PO Last administered on 09/01/16 20: 57; Start 09/01/16 at 21:00; Stop 09/02/16 at 09:06; Status DC Quetiapine Fumarate (SEROquel) 300 mg QHS PO ; Start 09/09/16 at 21:00; Stop at 20:59 Quetiapine Fumarate (SEROquel) 400 mg QHS PO Last administered on 09/08/16 21: 02; Start 09/02/16 at 21:00; Stop 09/09/16 at 08:58; Status DC Tamsulosin HCl (Flomax) 0.4 mg DAILY PO Last administered on 09/09/16 09:06; Start 08/18/16 at 09:00; Stop 09/17/16 at 08:59 Trazodone HCl (Desyrel) 50 mg QHSP PRN PO INSOMNIA Last administered on 20:53; Start 08/18/16 at 00:45; Stop 08/30/16 at 15:51; Status DC Allergies Coded Allergies: Quetiapine (Verified Allergy, Intermediate, rash, 08/31/16) GME ATTESTATION GME ATTESTATION My preceptor for this patient encounter was physically present in the building during the encounter and was fully available. As needed, all aspects of the patient interview, examination, medical decision making process, and medical care plan development were reviewed and approved by the preceptor. Preceptor is aware and concurs with the plan as stated in the body of this note and will attest to such by his/her cosignature. FOUZIA CAST Sep 09, 2016 15:46
--- NOTE | 2016-09-09 17:19 | IPN ---
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 MEDICATIONS: - Lamictal 75 mg by mouth twice a day - Seroquel 400 mg by mouth nightly - Paxil 10 mg by mouth daily SUBJECTIVE: "I'm feeling better." OBJECTIVE: The patient is improving slowly. Continues to report more energy and less psychomotor retardation. He is getting out of the room more often and participating in all psychotherapeutic activities. He is able to sleep better at night with the help of medication. MENTAL STATUS EXAMINATION: The patient is dressed in [facility]. Patient is well groomed. Gait is slow but less psychomotor retardation, makes fair eye contact. Speech is somewhat monotone but is more talkative. Mood is depressed and anxious but is improving slowly. Affect is restricted and flat but also improving. Thoughts are logical. He is goal directed. No delusions or hallucinations. The patient is denying suicidal or homicidal ideation. Insight and judgment are fair. ASSESSMENT: Bipolar disorder, depressed episode. PLAN: 1. Continue with Lamictal 75 mg by mouth twice a day. 2. Seroquel 400 mg by mouth nightly. 3. Paxil 10 mg by mouth every morning. 4. Continue medication management, individual and group therapy.
[2016-09-09 18:00] VITALS: BP 108/66
[2016-09-09] MEDS ORDERED: QUEtiapine FUMARATE 100 MG TAB PO SCH (21:00)
[2016-09-10] MEDS: LEVOTHYROXINE 0.075 MG TAB (75 MCG) PO SCH (06:31)
[2016-09-10 06:50] VITALS: BP 136/95
[2016-09-10] MEDS: lamoTRIgine 25 MG TAB PO SCH (09:10)
[2016-09-10] MEDS: PARoxetine 10MG TABLET PO SCH (09:10)
[2016-09-10] MEDS: TAMSULOSIN 0.4 MG CAP PO SCH (09:10)
[2016-09-10] MEDS: NICOTINE 14 MG/24 HR TRANSDERMAL TD SCH (09:10)
[2016-09-10] MEDS ORDERED: PARO5TAB PO ×2 (09:34→10:15)
[2016-09-10] MEDS ORDERED: QUET1TAB8 PO ×2 (09:34→10:15)
[2016-09-10] MEDS ORDERED: LAMI25TA PO ×2 (09:34→10:15)
--- NOTE | 2016-09-10 21:49 | DSES ---
DATE OF ADMISSION: 08/18/2016 DATE OF DISCHARGE: 09/10/2016 LEGAL STATUS AT ADMISSION: 9.39 legal status. HISTORY OF PRESENT ILLNESS: The following information is according to the initial evaluation of Dr. Dupont, his progress note and my own progress note. 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. Reportedly, he informed his therapist that he was not doing well and was expressing suicidal thoughts. In the emergency department, he was noted to appear confused and seemed to have difficulty remembering things. He reportedly did not respond to questions during the emergency department (ED) interview. In current interview in the unit, he relates that he was "a little depressed" and told his therapist about this as well as responding to thoughts of suicide. He further reports that he has mostly been diagnosed with bipolar disorder with his typical symptoms, including depressed mood, racing thoughts, and disorganized thinking. He says that he currently is prescribed Invega 6 mg by mouth daily, Zoloft 100 mg by mouth daily, and trazodone 200 mg by mouth at bedtime, but he has stopped taking the medications in the past 2 weeks. He reports feeling depressed and experiencing severe insomnia. He was noted during the interview with Dr. Dupont to be fidgety, maintaining a blank stare, repeatedly requesting termination of the interview and appearing uncomfortable. LABORATORIES AT ADMISSION: CBC was within normal limits. CMP was unremarkable. TSH within normal limits. UDS was negative. Blood alcohol level was negative. HOSPITAL COURSE: The patient was admitted on a 9.[address] Dupont and his team. He was on Paxil, and the Paxil was increased up to 30 mg daily. He also was started on Invega 6 mg by mouth daily. He did not respond well to these medications. The patient had a history of bipolar disorder. It was decided to switch the medication toward mood stabilizers and minimize the amount of antidepressant and help with the symptoms of insomnia that were severe. The patient stated that he was not able to sleep more than 2 hours; therefore, Lamictal was started at 25 mg by mouth daily and was increased up to 75 mg by mouth twice a day at the moment of discharge. Invega was tapered and discontinued. Seroquel was increased slowly up to 400 mg by mouth at bedtime. With this medication, patient was able to sleep. Paxil was tapered down to 10 mg by mouth daily. After a few days with these medications, patient started feeling better with less psychomotor retardation. He was interacting more in the unit and started being able to assist with psychotherapeutic activities. He had no longer psychomotor retardation, and his facial expression was also improved. He denied side effects. By the end of the hospitalization, his sleep had normalized, and he requested a decrease of the Seroquel, so Seroquel was decreased to 300 mg by mouth at bedtime with good tolerating, and the patient was sleeping well with this dosage. At the moment of discharge, patient is in a stable condition. Patient is still somewhat depressed but significantly improved from admission. Patient is denying suicidal or homicidal ideation. Patient does not have auditory or visual hallucinations or delusions, and patient is willing to continue his treatment in outpatient basis. Patient was notified that he will be discharged from the [employer], and this will happen in 2 weeks. His parents were notified, and they will come to help the patient to move to [place], where they live. Also note that patient notified us during this hospital admission that prior to coming to the hospital he did overdose on the medication he was not taking and storing at home, so before discharge this was notified to [facility] and his chain of command in order for the patient to have close monitoring of his outpatient medications. MENTAL STATUS EXAMINATION AT DISCHARGE: Patient is dressed in [facility]. Patient is calm and cooperative. His speech is clear, coherent with normal rate and is spontaneous. Patient has fair eye contact. Mood is slightly anxious and depressed but significantly improved from admission. Affect is appropriate with mood. Patient is oriented to time, place, person, and situation. Maintains attention and concentration correctly. Instant recall, recent and remote memory are intact. Thought processes are coherent, logical, and goal directed. Patient does not have auditory or visual hallucinations. Patient does not have paranoid, persecutory, somatic, grandiose, or yazdanism delusions. Patient is denying suicidal or homicidal ideation. Judgment and insight are fair. DISCHARGE DIAGNOSIS: Bipolar disorder, depressive episode. INSTRUCTIONS TO THE PATIENT: Patient is to continue taking his medications as prescribed from followup appointments. He is advised to maintain absolute sobriety from drugs and alcohol. Patient has a scheduled appointment for psychotherapy, medication management, individual psychotherapy, and primary care physician. [facility] and his chain of command have been notified about his overdose prior to admission and the fact that the patient needs to have close monitoring of the outpatient medications.
== END 2016-09-10 11:30 | disposition home or self-care (01) | DRG 885 ==
LOC: M ED 15:18 → M PSY 08-18 02:30
PROVIDERS: ADMIT Psychiatry & Neurology Psychiatry; ATTEND Psychiatry & Neurology Psychiatry
DX: F31.5 Bipolar disorder, current episode depressed, severe, with psychotic features (principal); E03.9 Hypothyroidism, unspecified; Z91.14 Patient's other noncompliance with medication regimen; R39.11 Hesitancy of micturition; Z79.899 Other long term (current) drug therapy